=== PATIENT | male | born 1975 | race African-American/Black ===

== ENCOUNTER 2016-06-27 08:33 | Inpatient (IN) ==
[2016-06-27] MEDS ORDERED: PROMETHAZINE 25 MG TABLET PO PRN (10:40)
[2016-06-27] MEDS ORDERED: ONDANSETRON 4 MG/2 ML VIAL IV PRN (10:40)
[2016-06-27] MEDS ORDERED: hydrALAZINE 20 MG/1 ML VIAL IV PRN (10:40)
[2016-06-27] MEDS ORDERED: ALBUTEROL/IPRATROPIUM 3 ML NEB RESP TX PRN (10:40)
[2016-06-27] MEDS ORDERED: BISACODYL 5 MG TABLET PO PRN (10:40)
[2016-06-27] MEDS ORDERED: ALBUTEROL 2.5 MG/3 ML NEB RESP TX PRN (10:40)
[2016-06-27] MEDS ORDERED: ZALEPLON 5 MG CAPSULE PO PRN (10:40)
[2016-06-27] MEDS ORDERED: LABETALOL 20 MG/4 ML SYRINGE IV PRN (11:00)
[2016-06-27 11:10] LABS: Basophils # 0.1 10*3/uL (0.0-0.2); Basophils % 0.2 % (0.0-0.8); Hematocrit 48.5 VOL% (42.0-52.0); Hemoglobin 15.6 GM/DL (14.0-18.0); Immature Granulocytes % 0.5 %; Immature Granulocytes Absolute 0.14 #; Lymphocytes % 3.9 % (21.2-54.2); Mean Corpuscular HGB Conc 32.2 GM/DL (32-36); Mean Corpuscular Hemoglobin 28 PG (27-34); Mean Corpuscular Volume 85.7 FL (87-102); Mean Platelet Volume 11.8 FL (9.6-12.0); Monocytes # 1.8 10*3/uL (0.11-0.8); Monocytes % 6.8 % (1.7-12.7); Neutrophils # 23.2 10*3/uL (1.4-7.4); Neutrophils % 88.6 % (38.7-73.9); Platelet Count 122 10*3/uL (130-400); Red Blood Count 5.66 10*6/uL (3.8-5.5); Red Cell Distribution Width 15.4 % (9.3-17.3); White Blood Count 26.2 10*3/uL (4.5-13.71)
[2016-06-27 11:19] LABS: PT Patient Result 10.8 SECS
[2016-06-27 11:39] LABS: Magnesium 2.1 MG/DL (1.8-2.4)
[2016-06-27 11:46] LABS: Band Neutrophils 6 % (0-10); Lymphocytes 1 % (20-55); Metamyelocytes 1 %; Segmented Neutrophils 85 % (50-85); Total Cells Counted 100
[2016-06-27 11:47] LABS: Hypochromasia Slight; Microcytosis Slight; Platelet Estimate Adequate
[2016-06-27 11:48] LABS: Albumin 3.2 G/DL (3.4-5.0); Bilirubin,Total 0.7 MG/DL (0.2-1.0); Calcium 8.7 MG/DL (8.5-10.1); Osmolality,Calculated 276.5 MOS/KG (273-304); Total Protein 6.4 G/DL (6.4-8.3)
[2016-06-27 11:50] LABS: Troponin I Only 0.897 NG/ML (0.00-0.045)
--- NOTE | 2016-06-27 11:52 | Hospitalist History & Physical ---
Assessment and Plan - Time spent with patient Time spent with patient: Greater than 30 minutes (1) Leukocytosis Status: Acute Assessment and plan: start levaquin an flagyl. follow up blood cultures Current Visit: Yes Qualifiers: Leukocytosis type: unspecified Qualified Code(s): D72.829 - Elevated white blood cell count, unspecified (2) Abdominal pain Status: Acute Assessment and plan: Epigastric abdominal pain has improved. He now reports pain and tenderness in the lower part of the abdomen. No bowel movement since hospitalization. follow up KUB Current Visit: Yes (3) Pancreatitis Status: Acute Assessment and plan: improving lipase. This is his first episode of pancreatitis. He does not give a heavy alcohol history. His gallbladder appeared normal on CT. The etiology of this is unclear. Lipid panel has been ordered for tomorrow morning. Consider GI consult. Current Visit: Yes Qualifiers: Chronicity: acute Pancreatitis type: unspecified pancreatitis type (4) Uncontrolled hypertension Status: Acute Assessment and plan: Start Cardene drip. Add metoprolol. Add pain medications and anxiolytics. Current Visit: Yes (5) Cocaine use Status: Acute Current Visit: Yes (6) Acute kidney injury Status: Acute Assessment and plan: Creatinine 1.8. Avoid nephrotoxic medications. Follow-up repeat labs in a.m. Current Visit: Yes History of Present Illness Chief complaint: abdominal pain, uncontrolled HTN History of present illness: Mr. Munson is a 40 year old male with a hx of hypertension. He was admitted to the hospital on Tuesday at [facility] with abdominal pain nausea vomiting and a diagnosis of pancreatitis. I was called this morning by his physician in [place] due to markedly elevated blood pressure that was not responsive to IV or oral medications. The patient's abdominal pain and pancreatitis symptoms have improved. I have reviewed his records from [facility] including his labs, history and physical, CT scan of the brain as well as CT scan of the abdomen and pelvis. His gallbladder and pancreas were unremarkable on the scans. He was noted to have some bladder wall thickening. He remains hypertensive on arrival here. He is also hypokalemic. He reports being on lisinopril as an outpatient. He does have an elevated creatinine of 1.8. He has a marked leukocytosis with white blood cell count of 26,000. No fever. The patient is admitted to the intensive care unit for treatment of his uncontrolled hypertension as well as treatment for pancreatitis. His nausea and vomiting began on Tuesday afternoon. He reports eating some fish on Tuesday at lunch and then vomiting get up a few hours later. He denies any blood in his stool or vomit. He has had some blood in his urine. Home Medications Medication Instructions Recorded Confirmed Type Lisinopril/Hydrochlorothiazide 20 mg PO DAILY 06/27/16 06/27/16 History [Lisinopril-Hctz 20-25 mg Tab] Allergies Allergy/AdvReac Type Severity Reaction Status Date / Time No Known Drug Allergies AdvReac Verified 06/27/16 09:15 Medical,Surgical,& Family Hx - Medical History Cardio: History of: Hypertension Genitourinary: History of: Kidney Stones Reproductive: Reports: Sexually Transmitted Disease (Gonorrhea) - Family History Family History: Reports;: Family Cancer (Father(pancreas)), Family Hypertension (Father,), Additional Family History (Mom- Bleeding ulcers) - Social History Smoking Status: Current every day smoker Have you smoked in the last 12 months: Yes Time spent discussing smoking cessation with patient: more than 10 minutes Frequency of Alcohol Use: Frequently Type of Drug Use: Cocaine, Marijuana Marital Status: Lives With:: Spouse Functional capacity: independent ambulation 12 point system: reviewed and no additional remarkable complaints except as stated - Gastrointestinal Gastrointestinal: Present: as per HPI, abdominal pain, dyspepsia, nausea, vomiting - Genitourinary Genitourinary: Present: hematuria Exam - Constitutional General appearance: no acute distress - Head Head exam: Present: normal inspection, normocephalic, atraumatic - Eye Eye exam: Present: EOMI Pupils: Present: MONIE - ENT ENT exam: Present: normal exam, normal oropharynx - Neck Neck exam: Present: normal inspection. Absent: lymphadenopathy - Respiratory Respiratory exam: Present: clear to auscultation bilaterally - Cardiovascular Cardiovascular exam: Present: regular rate and rhythm - GI/Abdominal GI/Abdominal exam: Present: normal bowel sounds, soft. Absent: tenderness, rebound - Extremities Exam Extremities exam: Present: normal inspection, full ROM. Absent: calf tenderness , edema - Back Exam Back exam: Present: normal inspection - Neurological Exam Neurological exam: Present: alert, oriented X3 - Psychiatric Psychiatric exam: Present: normal affect, agitated, anxious - Skin Skin exam: Present: normal color, warm, dry Results - Labs CBC & BMP: 06/27/16 11:02 Lab Results: I have reviewed the past 24 hour labs
[2016-06-27] MEDS ORDERED: MAGNESIUM HYDROXIDE SUSP 30 ML UDCUP PO PRN (11:56)
[2016-06-27] MEDS ORDERED: MAGNESIUM HYDROXIDE SUSP 30 ML UDCUP PO ONE (11:56)
[2016-06-27] MEDS ORDERED: LACTULOSE 20 GM/30 ML UDCUP PO PRN (11:56)
[2016-06-27] MEDS ORDERED: METOPROLOL SUCCINATE XL 25 MG TABLET PO SCH (12:00)
[2016-06-27] MEDS: POTASSIUM CHLORIDE RIDER 10 MEQ in PREMIX 1 EACH IV PRN ×8 (12:01→23:52)
[2016-06-27] MEDS: SODIUM CHLORIDE 0.9% 1,000 ML IV SCH ×2 (12:02→19:58)
[2016-06-27] MEDS: niCARdipine INJ 25 MG in SODIUM CHLORIDE 0.9% 240 ML IV SCH ×2 (12:04→20:00)
[2016-06-27] MEDS ORDERED: METOCLOPRAMIDE 10 MG/2 ML VIAL IV PRN (12:04)
--- NOTE | 2016-06-27 12:06 | XRay Report ---
History is abdominal pain There are scattered throughout small and large bowel without disproportionate small bowel dilatation or organomegaly seen There are several up to 5 mm calcification overlying the right kidney. Left kidney is obscured by overlying bowel gas with questionable 2-3 mm calculi Several 2-3 mm nonspecific pelvic calcifications present. Faint density in the left abdomen felt to be bowel Impression: 1. Bilateral nephrolithiasis with nonspecific pelvic calcifications 2. Nonspecific bowel gas pattern PROCEDURE INTERPRETED AT [facility] DEPARTMENT OF RADIOLOGY Final Report Signed by: Dr. Ela Caldera
[2016-06-27] MEDS: ENOXAPARIN 40 MG/0.4 ML SYRINGE SUBCUT SCH (12:19)
[2016-06-27] MEDS: LORazepam 2 MG/1 ML VIAL IV PRN ×3 (12:22→21:07)
[2016-06-27] MEDS: HYDROmorphone 2 MG/1 ML VIAL IV PRN ×3 (12:24→21:07)
[2016-06-27] MEDS: PANTOPRAZOLE 40 MG VIAL IV SCH (12:28)
[2016-06-27] MEDS: metroNIDAZOLE INJ 500 MG in PREMIX 1 EACH IV SCH ×2 (12:43→19:58)
[2016-06-27] MEDS: LEVOFLOXACIN INJ 750 MG in PREMIX 1 EACH IV SCH (14:19)
[2016-06-27] MEDS: CLORAZEPATE 3.75 MG TABLET PO PRN (17:25)
[2016-06-28] MEDS: POTASSIUM CHLORIDE RIDER 10 MEQ in PREMIX 1 EACH IV PRN ×3 (00:48→06:15)
[2016-06-28] MEDS: HYDROmorphone 2 MG/1 ML VIAL IV PRN ×3 (01:35→08:52)
[2016-06-28] MEDS: CLORAZEPATE 3.75 MG TABLET PO PRN ×2 (01:36→08:51)
[2016-06-28] MEDS: LORazepam 2 MG/1 ML VIAL IV PRN ×2 (03:44→08:51)
[2016-06-28] MEDS: metroNIDAZOLE INJ 500 MG in PREMIX 1 EACH IV SCH ×2 (03:44→11:56)
[2016-06-28] MEDS: SODIUM CHLORIDE 0.9% 1,000 ML IV SCH (03:45)
[2016-06-28 04:59] LABS: Basophils % 0.2 % (0.0-0.8); Eosinophils # 0.1 10*3/uL (0.0-0.87); Eosinophils % 0.3 % (0.00-10.9); Hematocrit 41.2 VOL% (42.0-52.0); Hemoglobin 13.3 GM/DL (14.0-18.0); Immature Granulocytes % 0.5 %; Immature Granulocytes Absolute 0.08 #; Lymphocytes # 1.2 10*3/uL (1.4-4.0); Lymphocytes % 7.3 % (21.2-54.2); Mean Corpuscular HGB Conc 32.3 GM/DL (32-36); Mean Corpuscular Hemoglobin 28 PG (27-34); Mean Corpuscular Volume 86.2 FL (87-102); Mean Platelet Volume 11.4 FL (9.6-12.0); Monocytes # 1.4 10*3/uL (0.11-0.8); Monocytes % 8.5 % (1.7-12.7); Neutrophils # 13.8 10*3/uL (1.4-7.4); Neutrophils % 83.2 % (38.7-73.9); Platelet Count 83 10*3/uL (130-400); Red Blood Count 4.78 10*6/uL (3.8-5.5); Red Cell Distribution Width 15.5 % (9.3-17.3); White Blood Count 16.5 10*3/uL (4.5-13.71)
[2016-06-28 05:19] LABS: Hypochromasia Slight; Platelet Estimate Decreased
[2016-06-28 05:20] LABS: Microcytosis Slight
[2016-06-28 05:29] LABS: Albumin 2.3 G/DL (3.4-5.0); Bilirubin,Total 0.8 MG/DL (0.2-1.0); Calcium 7.6 MG/DL (8.5-10.1); Magnesium 2.1 MG/DL (1.8-2.4); Osmolality,Calculated 278.5 MOS/KG (273-304); Potassium 3.2 MMOL/L (3.5-5.1); Risk Ratio 5.94; Total Protein 4.9 G/DL (6.4-8.3); VLDL CHOLESTEROL 40.8 MG/DL
[2016-06-28] MEDS ORDERED: POTASSIUM CHLORIDE 20 MEQ TABLET PO ONE ×2 (06:04→08:30)
[2016-06-28] MEDS: niCARdipine INJ 25 MG in SODIUM CHLORIDE 0.9% 240 ML IV SCH ×2 (06:15→08:48)
[2016-06-28] MEDS ORDERED: SODIUM CHLOR 0.9% KCL 20 MEQ 20 MEQ/1,000 ML BAG IV SCH (06:30)
[2016-06-28] MEDS ORDERED: SODIUM PHOSPHATE ENEMA 133 ML BOTTLE RECTAL ONE (08:32)
--- NOTE | 2016-06-28 08:35 | Hospitalist Progress Note ---
Assessment and Plan (1) Leukocytosis Status: Acute Assessment and plan: On levaquin an flagyl. follow up blood cultures. No obvious source of infection. check UA. Current Visit: Yes Qualifiers: Leukocytosis type: unspecified Qualified Code(s): D72.829 - Elevated white blood cell count, unspecified (2) Abdominal pain Status: Acute Assessment and plan: He now reports pain and tenderness in the lower part of the abdomen. No bowel movement since hospitalization. KUB unremarkable. Current Visit: Yes (3) Pancreatitis Status: Acute Assessment and plan: improving lipase. This is his first episode of pancreatitis. He does not give a heavy alcohol history. His gallbladder appeared normal on CT. The etiology of this is unclear. Lipid panel shows elevated total cholesterol and Triglycerides- not that high though. Consider GI consult. Current Visit: Yes Qualifiers: Chronicity: acute Pancreatitis type: unspecified pancreatitis type (4) Uncontrolled hypertension Status: Acute Assessment and plan: wean Cardene drip. increase metoprolol. add PO hydralazine and norvasc. continue pain medications and anxiolytics. Current Visit: Yes (5) Cocaine use Status: Acute Current Visit: Yes (6) Acute kidney injury Status: Acute Assessment and plan: Creatinine 1.8. Avoid nephrotoxic medications. Follow-up repeat labs in a.m. this could also be CKD. unsure of baseline. Current Visit: Yes Hospitalist: Subjective Interval history: 40-year-old -Italian male [facility] with pancreatitis and uncontrolled hypertension. He has been receiving a Cardene drip which has been controlling his blood pressure. His abdominal pain is improved and his lipase continues to trend downward. His pain is not located in the lower part of the abdomen below the umbilicus surrounding the bladder. He reports no bowel movements in several days. KUB unremarkable. We'll start oral antihypertensives today including Norvasc hydralazine and increase dose of metoprolol. The patient was previously on Cipro but has an elevated creatinine of 1.8. He complains of being very hungry. Exam - Constitutional Vitals: Period Temp Pulse Resp BP Sys/Schrader Pulse Ox Last 24 Hr 97.2 F-98.3 F 90-122 12-22 100-235/71-171 93-100 General appearance: no acute distress - Head Head exam: Present: normal inspection, normocephalic, atraumatic - Eye Eye exam: Present: EOMI Pupils: Present: MONIE - ENT ENT exam: Present: normal exam, normal oropharynx - Respiratory Respiratory exam: Present: clear to auscultation bilaterally - Cardiovascular Cardiovascular exam: Present: regular rate and rhythm - GI/Abdominal GI/Abdominal exam: Present: normal bowel sounds, tenderness (suprapubic / lower abdomen), soft - Extremities Exam Extremities exam: Present: normal inspection, full ROM. Absent: calf tenderness , edema - Neurological Exam Neurological exam: Present: alert, oriented X3, CN II-XII intact - Psychiatric Psychiatric exam: Present: normal affect, normal mood, agitated - Skin Skin exam: Present: normal color, warm, dry Results - Labs CBC & BMP: 06/28/16 04:45 06/28/16 04:45 Lab Results: I have reviewed the past 24 hour labs
[2016-06-28] MEDS ORDERED: METOPROLOL SUCCINATE XL 50 MG TABLET PO SCH (09:00)
[2016-06-28] MEDS ORDERED: amLODIPine 10 MG TABLET PO SCH (09:00)
[2016-06-28] MEDS ORDERED: SPIRONOLACTONE 25 MG TABLET PO SCH (09:00)
[2016-06-28] MEDS ORDERED: INFLUENZA VIRUS VACCINE 0.5 ML SYRINGE IM ONE (09:00)
[2016-06-28] MEDS: PANTOPRAZOLE 40 MG VIAL IV SCH (11:56)
[2016-06-28] MEDS: ENOXAPARIN 40 MG/0.4 ML SYRINGE SUBCUT SCH (11:56)
[2016-06-28] MEDS: LEVOFLOXACIN INJ 750 MG in PREMIX 1 EACH IV SCH (12:04)
[2016-06-28 12:22] LABS: Apearance,Urine CLEAR (Clear); Bilirubin,Urine Negative (Negative); Blood, Urine Negative (Negative); Glucose,Urine (UA) Negative (Negative); Ketones,Urine Negative (Negative); Nitrite,Urine Negative (Negative); Protein,Urine 100 MG/DL; RBC,Urine <1 /HPF (0-4); Urine Color Yellow (Yellow); Urine Specific Gravity 1.006 (1.001-1.035); Urine Urobilinogen < 2.0 EU/DL (0.2-1.0); WBC,Urine 1 /HPF (0-6)
--- NOTE | 2016-06-28 14:42 | Event Note ---
I was notified by the nursing staff that the patient left AGAINST MEDICAL ADVICE. They report belligerent behavior. The patient unplugged himself from the monitor and the blood pressure cuff. That he was leaving and didn't care what anybody said. They explained to him that this was not a safe discharge as his blood pressure was still uncontrolled. He uses profanity and walked out of the ICU. He did sign out AMA paperwork prior to leaving the critical care unit. I was notified after he walked out.
[2016-06-28 15:31] VITALS: BP 149/107
[2016-06-28] MEDS ORDERED: PRAVASTATIN 40 MG TABLET PO SCH (21:00)
--- NOTE | 2016-06-29 11:07 | Physician Query Form ---
CLICK EDIT DOCUMENT TO SELECT QUERY ANSWER --> OK --> SIGN Tiffanie Cadet RN, CCDS Certified Clinical Fish Checker Director of Clinical Documentation W) [phone] (f) [phone] [email or web address] PROVIDERS: Make your selection(s) from the choices in EACH section by typing an "x" and enter comments in the comment section. Please use your independent medical judgment in providing your response. This request does not imply that any particular answer is desired or expected. CLINICAL INDICATORS: (Providers should not edit this section) Patient admitted with uncontrolled hypertension, initial BP 227/160, started on cardene infusion Uncontrolled hypertension codes to a stable, chronic condition without further clarification. Note: Hypertensive crises can present as hypertensive urgency or hypertensive emergency. Clarify which, if any of the following, is a more accurate diagnosis reflecting the type and acuity of the documented hypertension: TYPE: (x) Hypertensive Urgency ( ) Hypertensive Emergency ( ) Uncontrolled chronic hypertension at baseline ( ) Other, please specify: ( ) Clinically unable to determine Criteria Source - Up to Date (This topic last updated: Aug 13, 2015) HYPERTENSIVE URGENCY: Severe hypertension (usually a diastolic blood pressure above 120 mmHg) in asymptomatic patients is referred to as hypertensive urgency. There is no proven benefit from rapid reduction in blood pressure in asymptomatic patients who have no evidence of acute end-organ damage and are at little short-term risk. HYPERTENSIVE EMERGENCY: Severe hypertension (usually a diastolic blood pressure above 120 mmHg) with evidence of acute end-organ damage is defined as a hypertensive emergency. A hypertensive emergency can be life threatening and requires immediate treatment, usually with parenteral medications in a monitored setting. COMMENTS: Use of terms such as suspected, likely, or probable (associated with a specific diagnosis that is being evaluated, monitored, or treated as if it exists) are acceptable and can be restated in the discharge summary if not ruled out. MTDD
== END 2016-06-28 14:00 | disposition left against medical advice (07) | DRG 304 ==
LOC: N.CC 10:30
PROVIDERS: ADMIT Family Medicine; ATTEND Family Medicine

== ENCOUNTER 2016-07-01 12:00 | Inpatient (IN) ==
[2016-07-01] MEDS ORDERED: HYDROmorphone 2 MG/1 ML VIAL IV STA (12:59)
[2016-07-01] MEDS ORDERED: SODIUM CHLORIDE 0.9% 500 ML IV STA (12:59)
[2016-07-01] MEDS ORDERED: PANTOPRAZOLE 40 MG VIAL IV STA (12:59)
[2016-07-01] MEDS ORDERED: ALUM/MAG/SIMETH/LIDO VISC 1:1 30 ML BOTTLE PO STA (12:59)
[2016-07-01] MEDS ORDERED: ONDANSETRON 4 MG/2 ML VIAL IV STA (12:59)
[2016-07-01] MEDS ORDERED: hydrALAZINE 20 MG/1 ML VIAL IV STA (12:59)
--- NOTE | 2016-07-01 13:02 | Emergency Department Note ---
Daniel Diaz Meredith, am scribing for, and in the presence of, Camilo Jama MD 12:53. Evita Diaz Charles R, MD, personally performed the services described in this documentation, ascribed by Carine Sanchez in my presence, and it is both accurate and complete . Arrival - Arrival Chief Complaint: Abdominal / Flank Pain Stated Complaint: pain in lower abd/pancreatitis ED Nursing Triage Note: right abd pain. states that he was in hospital tuesday for pancreatitis but left AMA but states that he doesn't remember leaving AMA. hx: HTN Mode of Arrival: Ambulatory Limitations: No Limitations Source: Patient, Old Records Reviewed, RN Notes Reviewed Time Seen by Provider: 07/01/16 12:20 - History of Present Illness HPI Narrative: Pt is a 40 y/o black male reporting to the ED with c/o lower right quadrant abdominal pain and nausea. He was seen here in the ED 4 days ago and was diagnosed with pancreatitis but left AMA. Pt states he does not remember leaving AMA. His blood pressure at the time of triage was 242/166. He has a history of HTN and kidney stones. Pt admits to using tobacco, alcohol, and other drugs but states he has not used any of those things since he got sick. Onset (ago): day(s) Allergies/Adverse Reactions: Allergies Allergy/AdvReac Type Severity Reaction Status Date / Time No Known Drug Allergies AdvReac Verified 06/27/16 09:15 Home Medications: Home Medications Medication Instructions Recorded Confirmed Type Lisinopril/Hydrochlorothiazide 20 mg PO DAILY 06/27/16 06/27/16 History [Lisinopril-Hctz 20-25 mg Tab] Review of System - Review of System 12 point system: reviewed and no additional remarkable complaints except as stated - Review of System Cardiovascular: Present: as per HPI, other (hypertension) Gastrointestinal: Present: as per HPI, abdominal pain, nausea Medical,Surgical,& Family Hx - Medical History Cardio: History of: Hypertension Genitourinary: History of: Kidney Stones Gastrointestinal: History of: Pancreatitis Reproductive: Reports: Sexually Transmitted Disease (Gonorrhea) - Family History Family History: Reports;: Family Cancer (Father(pancreas)), Family Hypertension (Father,) - Social History Smoking Status: Current every day smoker Frequency of Alcohol Use: Occasionally Type of Drug Use: Marijuana Exam Vital Signs: Vital Signs Temperature 98.9 F 07/01/16 12:03 Pulse Rate 113 H 07/01/16 12:03 Respiratory Rate 20 07/01/16 12:03 Blood Pressure 242/166 07/01/16 12:03 O2 Sat by Pulse Oximetry 97 07/01/16 12:03 - General General appearance: alert, in no apparent distress - Head Head exam: Present: atraumatic, normocephalic - Eye Eye exam: Present: normal appearance, PERRL, EOMI - ENT ENT exam: Present: mucous membranes moist, normal external ear exam - Neck Neck exam: Present: full ROM, trachea midline. Absent: tenderness, meningismus , lymphadenopathy, thyromegaly - Chest Chest inspection: Present: symmetric chest wall rise. Absent: tenderness, rash - Respiratory Respiratory exam: Present: normal lung sounds bilaterally. Absent: respiratory distress - Cardiovascular Cardiovascular exam: Present: normal rhythm, tachycardia. Absent: murmur, rubs , gallop - Abdominal Exam Abdominal exam: Present: soft, tenderness (mildy tender in the lower abdomen ), diminished bowel sounds. Absent: distention - Extremities Exam Extremities exam: Present: full ROM, normal capillary refill. Absent: tenderness, pedal edema, calf tenderness - Back Exam Back exam: Present: full ROM. Absent: tenderness - Neurological Exam Neurological exam: Present: alert, oriented X3, CN II-XII intact. Absent: motor sensory deficit - Psychiatric Psychiatric exam: Present: normal affect, normal mood - Skin Skin exam: Present: warm, dry, intact, normal color Course - Consultations Consultation #1: Hospitalist will admit patient Time: 14:30 Results - Labs CBC & BMP: 07/01/16 12:24 07/01/16 12:24 Lab Results: I have reviewed the patients labs Labs: Laboratory Tests 07/01/16 07/01/16 12:24 12:24 WBC 14.1 H RBC 5.01 Hgb 13.8 L Hct 42.6 MCV 85.0 L Plt Count 139 D Neut % (Auto) 75.2 H Lymph % (Auto) 11.9 L Neut # (Auto) 10.6 H [place] # (Auto) 1.5 H Serum Alcohol < 15 L Laboratory Tests 07/01/16 12:24 Sodium 139 Potassium 3.1 L Chloride 100 Carbon Dioxide 27 Anion Gap 15.1 H BUN 14 Creatinine 1.80 H Glucose 110 H Magnesium 2.7 H AST 41 H Alkaline Phosphatase 169 H Troponin I 0.262 H Albumin 2.9 L Globulin 3.6 H Albumin/Globulin Ratio 0.8 L Amylase 162 H Laboratory Tests 07/01/16 07/01/16 13:55 13:55 Urine pH 7.0 Ur Specific [place] 1.010 Urine Protein >=500 Urine Urobilinogen < 2.0 H Urine RBC 7 Urine WBC 1 Ur Squamous Epith Cells Occasional Urine Mucus Occasional Urine Opiates Screen Positive H Ur Barbiturates Screen Negative Ur Phencyclidine Scrn Negative U Amphetamine/Methamph Negative U Benzodiazepines Scrn Negative U Cocaine Metab Screen Positive H U Cannabinoids Screen Positive H - Diagnostic Findings Procedure: Abdominal x-ray: report reviewed by me (Unremarkable bowel gas pattern. Stable appearing right nephrolithiasis when compared to 06/27/16. Unable to identify the previously identifed nephrolithiasis. ), Chest x-ray: report reviewed by me (Negative chest. ) Critical Care Time Critical Care Time: Yes Total Critical Care Time: 60 Disposition Clinical Impression: Abdominal pain, Cocaine use, Uncontrolled hypertension, Malignant hypertension , Renal insufficiency, Elevated troponin, Polysubstance abuse Case discussed with: patient, patient's family Disposition: Still a Patient Condition: Guarded Time of Disposition: 14:31
[2016-07-01] MEDS ORDERED: hydrALAZINE 20 MG/1 ML VIAL ONE (13:21)
[2016-07-01] MEDS ORDERED: PANTOPRAZOLE 40 MG VIAL IV ONE (13:21)
[2016-07-01] MEDS ORDERED: ONDANSETRON 4 MG/2 ML VIAL ONE (13:21)
[2016-07-01] MEDS ORDERED: ALUM/MAG/SIMETH/LIDO VISC 1:1 30 ML BOTTLE PO ONE (13:22)
[2016-07-01] MEDS ORDERED: HYDROmorphone 2 MG/1 ML VIAL ONE (13:22)
--- NOTE | 2016-07-01 13:25 | EKG Report ---
Stationary ECG Study [facility] ER Test Date: 07/01/2016 1:23:17 PM Pat Name: LOIS MEDINA Department: Room: 126 Gender: M Commercial Underwriter: MIRZA : 1975 Requested by: Camilo Arias Order Number: [id number] Reading MD: AMANDEEP THOMSON Intervals [place] Rate: 103 P: 71 MA: 99 QRS: 65 QRSD: 79 T: -90 QT: 352 QTc: 411 Interpretive Statements SINUS TACHYCARDIA WITH SHORT MA INTERVAL POSSIBLE LEFT ATRIAL ENLARGEMENT LEFT VENTRICULAR HYPERTROPHY AND ST-T CHANGE Electronically Signed On 07-02-16 13:37:18 HOUSE PRINCIPAL by AMANDEEP THOMSON [email or web address]
--- NOTE | 2016-07-01 13:26 | XRay Report ---
XR chest 1V portable Indication: Abdominal pain. Chest one view: No comparison. The heart size and mediastinal contour are normal. The lungs and pleural spaces are clear. Bones are unremarkable. Impression: Negative chest. PROCEDURE INTERPRETED AT [facility] DEPARTMENT OF RADIOLOGY Final Report Signed by: Peterson Yañez M.D.
--- NOTE | 2016-07-01 13:28 | XRay Report ---
XR abdomen 2V Indication: Abdominal pain. Abdomen 4 views: 2 calcifications project of the lower pole the right kidney. Previous identify stones over left renal shadow are probably obscured by bowel gas on today's study. No small bowel dilatation seen. Normal amount of stool and gas is shown the colon. Impression: Unremarkable bowel gas pattern. Stable appearing right nephrolithiasis when compared to 06/27/16. Unable to identify the previously identified left nephrolithiasis. PROCEDURE INTERPRETED AT [facility] DEPARTMENT OF RADIOLOGY Final Report Signed by: Peterson Yañez M.D.
[2016-07-01 13:49] LABS: Basophils # 0.1 10*3/uL (0.0-0.2); Basophils % 0.4 % (0.0-0.8); Eosinophils # 0.1 10*3/uL (0.0-0.87); Eosinophils % 0.8 % (0.00-10.9); Hematocrit 42.6 VOL% (42.0-52.0); Hemoglobin 13.8 GM/DL (14.0-18.0); Immature Granulocytes % 1.2 %; Immature Granulocytes Absolute 0.17 #; Lymphocytes # 1.7 10*3/uL (1.4-4.0); Lymphocytes % 11.9 % (21.2-54.2); Mean Corpuscular HGB Conc 32.4 GM/DL (32-36); Mean Corpuscular Hemoglobin 28 PG (27-34); Mean Platelet Volume 11.4 FL (9.6-12.0); Monocytes # 1.5 10*3/uL (0.11-0.8); Monocytes % 10.5 % (1.7-12.7); Neutrophils # 10.6 10*3/uL (1.4-7.4); Neutrophils % 75.2 % (38.7-73.9); Platelet Count 139 10*3/uL (130-400); Red Blood Count 5.01 10*6/uL (3.8-5.5); Red Cell Distribution Width 14.7 % (9.3-17.3); White Blood Count 14.1 10*3/uL (4.5-13.71)
[2016-07-01 14:03] LABS: Alanine Aminotransferase 60 U/L (16-61); Albumin 2.9 G/DL (3.4-5.0); Alkaline Phosphatase 169 U/L (45-117); Amylase 162 U/L (25-115); Aspartate Amino Transferase 41 U/L (0-37); Bilirubin,Total < 0.39 MG/DL (0.2-1.0); Blood Urea Nitrogen 14 MG/DL (7-18); Calcium 8.6 MG/DL (8.5-10.1); Glucose 110 MG/DL (74-106); Magnesium 2.7 MG/DL (1.8-2.4); Osmolality,Calculated 278.5 MOS/KG (273-304); Potassium 3.1 MMOL/L (3.5-5.1); Sodium 139 MMOL/L (136-145); Total Protein 6.5 G/DL (6.4-8.3)
[2016-07-01 14:11] LABS: Barbiturates Screen,Urine Negative (Negative); Benzodiazepines Screen,Urine Negative (Negative); Cannabinoid Screen,Urine Positive (Negative); Opiate Screen,Urine Positive (Negative); Phencyclidine Screen,Urine Negative (Negative)
[2016-07-01 14:11] LABS: Troponin I Only 0.262 NG/ML (0.00-0.045)
[2016-07-01 14:23] LABS: Apearance,Urine CLEAR (Clear); Bilirubin,Urine Negative (Negative); Blood, Urine Negative (Negative); Glucose,Urine (UA) Negative (Negative); Ketones,Urine Negative (Negative); Mucus,Urine Occasional /LPF (Occasional); Nitrite,Urine Negative (Negative); Protein,Urine >=500 MG/DL; RBC,Urine 7 /HPF (0-4); Squamous Epithelial Cell,Urine Occasional /HPF (0-10); Urine Color Yellow (Yellow); Urine Urobilinogen < 2.0 EU/DL (0.2-1.0); WBC,Urine 1 /HPF (0-6)
[2016-07-01] MEDS ORDERED: niCARdipine 25 MG/10 ML VIAL IV ONE (14:29)
[2016-07-01] MEDS ORDERED: POTASSIUM CHLORIDE 20 MEQ TABLET PO STA (14:30)
[2016-07-01] MEDS ORDERED: ACETAMINOPHEN 325 MG TABLET PO PRN (14:39)
[2016-07-01] MEDS ORDERED: DOCUSATE SODIUM 100 MG CAPSULE PO PRN (14:39)
[2016-07-01] MEDS ORDERED: ONDANSETRON 4 MG/2 ML VIAL IV PRN (14:39)
--- NOTE | 2016-07-01 15:21 | Hospitalist History & Physical ---
Assessment and Plan - Time spent with patient Time spent with patient: Greater than 30 minutes (due to assessment, plan and documentation.) (1) Hypertensive urgency Status: Acute Current Visit: Yes (2) Abdominal pain Status: Acute Current Visit: Yes (3) Cocaine use Status: Acute Current Visit: Yes (4) Elevated troponin Status: Acute Current Visit: Yes History of Present Illness Chief complaint: headache, chest discomfort. History of present illness: Mr. Munson is a 40 year old male who has recently been discharged from our facility on Tuesday for a bout of acute pancreatitis. He presents today with headache, and some chest discomfort per his report. His BP on arrival was 242/ 166. He has been started on a Cardene infusion at 2.5 mg/hr. He is very anxious and tearful during my interview. He states that he has a hx of HTN and that his lisinopril was recently increased to 20 mg/ [address] Ames. He states that he has been out of his medications for 2 weeks and has not been able to get an appointment for a refill. He is still sore from his pancreatitis, Amylase 162, lipase 377. His UDS was positive for cocaine and marijuana. He states that he has not done any drugs in about a week. He states that he is going to stop smoking now, and that he only occasionally drinks a couple of beers. He does have an extensive family history of HTN. He is not diabetic. His troponin was elevated at 0.262. We will get serial troponins, EKG's, and Cardiology consultation. He denies any problems voiding or having a BM, denies any dysuria or hematuria. However, he does mention that he has had an episode of bleeding when he ejaculated. He states that he was told that it could have been due to his kidneys. Creatinine is 1.8 with GFR 63 today. BUN 14. He states that he can't get an erection now, and that he has no sex drive. Informed that sometimes this is a side effect from BP medication but that he really needed to be compliant and that there are other medications that may not cause as much of problem. His is at bedside. They are both okay with our plan of care. He lives at home and typically functions independently. \ Further plan and addendum to follow by Dr. Annabel Parada. Home Medications Medication Instructions Recorded Confirmed Type Lisinopril/Hydrochlorothiazide 20 mg PO DAILY 06/27/16 06/27/16 History [Lisinopril-Hctz 20-25 mg Tab] Allergies Allergy/AdvReac Type Severity Reaction Status Date / Time No Known Drug Allergies AdvReac Verified 06/27/16 09:15 Medical,Surgical,& Family Hx - Medical History Cardio: History of: Hypertension Genitourinary: History of: Kidney Stones Gastrointestinal: History of: Pancreatitis Reproductive: Reports: Sexually Transmitted Disease (Gonorrhea) - Family History Family History: Reports;: Family Cancer (Father(pancreas)), Family Hypertension (Father,) - Social History Smoking Status: Current every day smoker Frequency of Alcohol Use: Occasionally Type of Drug Use: Cocaine, Marijuana Marital Status: Lives With:: Spouse Functional capacity: independent ambulation - Constitutional Constitutional: Absent: chills, fatigue, fever(s) - EENT Eyes: Absent: blurry vision, diplopia Ears: Absent: decreased hearing, tinnitus Nose, mouth and throat: Absent: dysphagia - Cardiovascular Cardiovascular: Present: chest pain at rest (resolved). Absent: dyspnea on exertion, palpitations - Respiratory Respiratory: Absent: cough, dyspnea, hemoptysis - Gastrointestinal Gastrointestinal: Absent: abdominal pain, melena, nausea, vomiting - Genitourinary Genitourinary: Present: other (erectile dysfunction; bloody ejaculation x 1 several weeks ago. ). Absent: dysuria, hematuria - Musculoskeletal Musculoskeletal: Absent: back pain, joint swelling - Neurological Neurological: Absent: confusion, dizziness - Psychiatric Psychiatric: Present: anxiety. Absent: confusion, depression - Endocrine Endocrine: Absent: cold intolerance, heat intolerance - Hematologic/Lymphatic Hematologic/Lymphatic: Absent: easy bleeding, easy bruising Exam - Constitutional Vitals: Period Temp Pulse Resp BP Sys/Schrader Pulse Ox Last 24 Hr 98.9 F 113 20 242/166 97 General appearance: normal weight, no acute distress - Head Head exam: Present: normal inspection, normocephalic - Eye Eye exam: Present: EOMI. Absent: scleral icterus Pupils: Present: MONIE, normal accommodation - ENT ENT exam: Present: normal exam, normal oropharynx - Neck Neck exam: Present: normal inspection. Absent: lymphadenopathy - Respiratory Respiratory exam: Present: clear to auscultation bilaterally. Absent: accessory muscle use - Cardiovascular Cardiovascular exam: Present: tachycardia. Absent: carotid bruit - GI/Abdominal GI/Abdominal exam: Present: normal bowel sounds, soft. Absent: tenderness - Extremities Exam Extremities exam: Present: normal inspection. Absent: edema - Back Exam Back exam: Present: normal inspection. Absent: muscle spasm - Neurological Exam Neurological exam: Present: alert, oriented X3 - Psychiatric Psychiatric exam: Present: anxious - Skin Skin exam: Present: normal color, warm, dry, intact Results - Labs CBC & BMP: 07/01/16 12:24 07/01/16 12:24 Lab Results: I have reviewed the past 24 hour labs - Diagnostic Findings Procedure: Chest x-ray: report reviewed by me (negative. ), X-ray: report reviewed by me (abd: stable appearing nephrolithiasis. )
[2016-07-01] MEDS: niCARdipine INJ 25 MG in SODIUM CHLORIDE 0.9% 240 ML IV SCH ×2 (15:50→18:25)
--- NOTE | 2016-07-01 16:51 | Cardiology Consult Note ---
<Estefanía Torres E - Last Filed: 07/01/16 16:41> Assessment and Plan - Time spent with patient Time spent with patient: Greater than 30 minutes (1) Abdominal pain Status: Acute Assessment and plan: Defer further workup to attending. Current Visit: Yes (2) Cocaine use Status: Chronic Assessment and plan: Greater than 20 minutes was spent today discussing the merits of cocaine cessation. We'll avoid use of beta blockers while cocaine positive Current Visit: Yes (3) Renal insufficiency Status: Acute Assessment and plan: Continue to monitor closely. Current Visit: Yes (4) Elevated troponin Status: Acute Assessment and plan: We will cycle every 8 hours. EKG in the morning. Short of patient having [facility], medical management will ensue. I suspect that his troponin is related to his uncontrolled hypertension as he normally does not have chest pain, heaviness , tightness or shortness of breath with exertion. See HPI for additional information Current Visit: Yes (5) Polysubstance abuse Status: Acute Assessment and plan: Greater than 20 minutes was spent today discussing the merits of cessation of illicit drugs. Current Visit: Yes (6) Hypertensive urgency Status: Acute Assessment and plan: Currently using Cardene for hypertensive urgency. Will trend down slowly. We will avoid beta blockers. I suspect patient may require 3 or more antihypertensives to control his blood pressure. Current Visit: Yes (7) LVH (left ventricular hypertrophy) Status: Acute Assessment and plan: LVH pattern per EKG. Echocardiogram has been ordered. Current Visit: Yes History of Present Illness - Data of Consult Patient: new to practice Consult date: 07/01/16 Requesting Physician: Annabel Parada - Consult Narrative Reason for consult: hypertensive urgency, elevated troponin History of present illness: Mr. Munson is a 40 year old male who is never been seen by cardiology. Risk factors include: Hypertension untreated, cocaine use, marijuana use, tobaccoism and noncompliance. Mr. Munson was hospitalized to [facility] 06/27/2016 for acute pancreatitis. He left AGAINST MEDICAL ADVICE the following day. He returned to the emergency department today with complaints of headache and chest discomfort. Blood pressure on arrival to the emergency department was 242/166. He was started on IV Cardene at 2.5 mg/h and his blood pressure is currently 170/110. Cardiac biomarkers reveal troponin of 0.2. EKG reveals LV strain and ST changes. He is currently chest pain-free. Chest pain started last evening and is located in his middle to left chest area. He describes this as a stinging sensation. He feels as if lifting his left shoulder above his head may improve the discomfort. It is not associated with shortness of breath, heart racing or palpitations. He is normally very active. 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 His primary complaint is of lower lateral abdominal discomfort for the past several days. He tells me he feels as if he's been running a fever at home. He denies cough or chills. He denies vomiting of blood or passing blood in his stool. He is somewhat tender to touch in the mid and lower abdominal areas. States he had a bowel movement yesterday which she considered to be of normal consistency. He has difficulty getting an erection but recently, when he did ejaculate he had blood in his ejaculate. He is concerned about this. He is with 3 children. Set of twin boys, age 17 and an 11-year-old girl. Patient does not take his antihypertensives appropriately. We had a greater than 20 minute conversation today regarding the importance of taking his medications as prescribed. Also informed patient that I suspect he would be a patient he may require up to 3 or more medications to control his blood pressure. He verbalizes understanding. I did discuss that we could most likely manage his blood pressure medications with antihypertensives on the $4 [employer]. He tells me he's interested in stopping the use of all illicit drugs, tobacco and alcohol. This point, we will continue to cycle his cardiac biomarkers. An echocardiogram will be ordered. I suspect his troponin elevation may be related to his hypertensive urgency as he is normally very active without having chest pain, heaviness tightness or shortness of breath. Can consider further invasive workup should the patient demonstrate medication compliance. Short of the patient having a STEMI, we will treat him medically. Should he have symptoms of angina when his blood pressure is controlled and he is off illegal drugs, we can consider further workup as needed. I discussed this with the patient he verbalizes understanding of this information. CC: Annabel Parada MD - Home Medications and Allergies Home Medications: Home Medications Medication Instructions Recorded Confirmed Type Lisinopril/Hydrochlorothiazide 20 mg PO DAILY 06/27/16 07/01/16 History [Lisinopril-Hctz 20-25 mg Tab] Allergies/Adverse Reactions: Allergies Allergy/AdvReac Type Severity Reaction Status Date / Time No Known Drug Allergies AdvReac Verified 06/27/16 09:15 Review of systems: REVIEW OF SYSTEMS: See HPI - Constitutional Constitutional: Present: Fatigue. Absent: syncope, anorexia, night sweats - EENT Eyes: Absent: blurry vision, loss of vision, diplopia Ears: Absent: decreased hearing, ear pain, ear discharge - Cardiovascular Cardiovascular: Denies chest pain with exertion, dyspnea on exertion, edema, palpitations. Absent: chest pain with deep breath, claudication. - Respiratory Respiratory: Denies FUENTES, cough. Absent: wheezing, hemoptysis, change in phlegm color - Gastrointestinal Gastrointestinal: Present: abdominal pain. Denies hematemesis, hematochezia, melena, change in bowel habits, nausea - Genitourinary Genitourinary: Absent: difficulty urinating, dysuria, urinary hesitancy, flank pain. Impotence. When he does have sexual relations he has been having bloody ejaculate - Musculoskeletal Musculoskeletal: Denies joint swelling, muscle cramps, muscle weakness - Neurological Neurological: Present: normal gait without frequent falls. Absent: dizziness, hemiparesis - Psychiatric Psychiatric: Absent: anxiety, depression, difficulty concentrating - Endocrine Endocrine: Present: fatigue. Absent: cold intolerance, heat intolerance, polyuria, polyphagia, polydipsia - Hematologic/Lymphatic Hematologic/Lymphatic: Present: easy bruising. Absent: easy bleeding -Integumentary Integumentary: Absent: lesions, rashes, skin breakdown Medical,Surgical,& Family Hx - Medical History Cardio: History of: Hypertension No history of: CAD, [place] Genitourinary: History of: Kidney Stones Gastrointestinal: History of: Pancreatitis Reproductive: Reports: Sexually Transmitted Disease (Gonorrhea) - Family History Family History: Reports;: Family Cancer (Father(pancreas)), Family Hypertension (Father,) - Social History Smoking Status: Current every day smoker Have you smoked in the last 12 months: Yes Time spent discussing smoking cessation with patient: 3 to 10 minutes Frequency of Alcohol Use: Occasionally Type of Drug Use: Cocaine, Marijuana Marital Status: Lives With:: Spouse Functional capacity: independent ambulation Physical Examination Vital Signs Temp Pulse Resp BP Pulse Ox 98.9 F 113 H 20 242/166 97 07/01/16 12:03 07/01/16 12:03 07/01/16 12:03 07/01/16 12:03 07/01/16 12:03 General: Appears well with no apparent distress. Pleasant and cooperative. Appears comfortable. HEENT: PERRL, normocephalic, atraumatic. Mucous membranes moist. No jaundice noted. Conjunctiva moist and clear, sclerae anicteric Neck: No JVD/HJR, no thyromegaly or lymphadenopathy noted. No carotid bruit appreciated Cardiac: Regular rate and rhythm. No murmur rub or gallop. Lungs: Clear to auscultation without accessory muscle use to assist the respiratory pattern. Not requiring oxygen Abdomen: Soft, bowel sounds normoactive. Touch mid and lower abdominal areas. No abdominal bruit or thrill noted. No masses noted. Musculoskeletal: No fluid collection. Decreased range of motion is noted. Extremities: No clubbing, cyanosis noted. No edema noted. Upper extremity pulses 2+. Lower extremity pulses 2+. Capillary refill less than 3 seconds. Skin: No unusual lesions or rashes. No skin breakdown appreciated. Neuro: Awake, alert and oriented 3. Moves all extremities well without hemiparesis or paralysis. No essential tremor is appreciated. Result/EKG - Labs CBC & BMP: 07/01/16 12:24 07/01/16 12:24 Lab Results: I have reviewed the past 24 hour labs - Diagnostic Findings Procedure: Chest x-ray: report reviewed by ma - EKG EKG results: interpreted by ma EKG shows: tachycardia <Brenden Cabrera - Last Filed: 07/02/16 08:32> History of Present Illness - Consult Narrative History of present illness: Mr. Munson is a 40 year old male CC: Annabel Parada MD Physical Examination Vital Signs Temp Pulse Resp BP Pulse Ox 98.9 F 113 H 20 242/166 97 07/01/16 12:03 07/01/16 12:03 07/01/16 12:03 07/01/16 12:03 07/01/16 12:03 Result/EKG - Labs CBC & BMP: 07/02/16 00:54 07/02/16 00:54 Labs: Laboratory Results - last 24 hr 07/01/16 07/02/16 07/02/16 17:37 00:54 00:54 WBC 13.8 H RBC 4.82 Hgb 13.2 L Hct 40.8 L MCV 84.6 L MCH 27 MCHC 32.4 RDW 14.4 Plt Count 143 MPV 11.3 Neut % (Auto) 77.3 H Lymph % (Auto) 11.4 L [place] % (Auto) 8.8 Eos % (Auto) 0.6 Baso % (Auto) 0.4 Neut # (Auto) 10.7 H Lymph # (Auto) 1.6 [place] # (Auto) 1.2 H Eos # (Auto) 0.1 Baso # (Auto) 0.1 Immature Gran % 1.5 Nucleated RBC % 0.0 Immature Gran # 0.21 Nucleated RBCs # 0.00 Sodium Potassium Chloride Carbon Dioxide Anion Gap BUN Creatinine GFR Calculation BUN/Creatinine Ratio Glucose Calculated Osmolality Calcium Magnesium Total Bilirubin AST ALT Alkaline Phosphatase Troponin I 0.222 H 0.214 H B-Natriuretic Peptide Total Protein Albumin Globulin Albumin/Globulin Ratio Triglycerides Cholesterol LDL Cholesterol VLDL Cholesterol HDL Cholesterol Heart Disease Risk Ratio Free T4 TSH 3rd Generation 07/02/16 07/02/16 07/02/16 00:54 00:54 00:54 WBC RBC Hgb Hct MCV MCH MCHC RDW Plt Count MPV Neut % (Auto) Lymph % (Auto) [place] % (Auto) Eos % (Auto) Baso % (Auto) Neut # (Auto) Lymph # (Auto) [place] # (Auto) Eos # (Auto) Baso # (Auto) Immature Gran % Nucleated RBC % Immature Gran # Nucleated RBCs # Sodium 139 Potassium 3.2 L Chloride 103 Carbon Dioxide 23 Anion Gap 16.2 H BUN 14 Creatinine 1.60 H GFR Calculation 73 BUN/Creatinine Ratio 8.00 Glucose 128 H Calculated Osmolality 279.5 Calcium 7.3 L Magnesium 2.1 Total Bilirubin 0.40 AST 60 H ALT 102 H Alkaline Phosphatase 178 H Troponin I B-Natriuretic Peptide 107 H Total Protein 5.8 L Albumin 2.5 L Globulin 3.3 Albumin/Globulin Ratio 0.7 L Triglycerides 207 H Cholesterol 280 H LDL Cholesterol 198.0 VLDL Cholesterol 41.4 HDL Cholesterol 45 Heart Disease Risk Ratio 6.22 Free T4 1.19 TSH 3rd Generation 0.940
--- NOTE | 2016-07-01 17:03 | CT Report ---
History is flank pain abdominal pain There are several up to 5 mm right renal calculi and tiny 1 mm left renal calculi No secondary signs of acute ureteral obstruction seen. Tiny calcifications adjacent to the right ureter felt be phlebolith. No enlarged retroperitoneal nodes seen There is thickening fluid and stranding in the fat surrounding the tail of the pancreas without a discrete loculated pseudocyst. Pelvis: Appendix is normal in size. No free fluid or focal inflammatory changes seen in the pelvis. Multiple pelvic phleboliths present. Impression: 1. Inflammatory changes and phlegmon in the left upper abdomen most likely related to pancreatitis involving the tail of the pancreas. Clinical correlation and followup suggested 2. Bilateral nephrolithiasis PROCEDURE INTERPRETED AT [facility] DEPARTMENT OF RADIOLOGY Final Report Signed by: Dr. Ela Caldera
[2016-07-01] MEDS: ENOXAPARIN 40 MG/0.4 ML SYRINGE SUBCUT SCH (18:17)
[2016-07-01] MEDS: SODIUM CHLORIDE 0.9% 1,000 ML IV SCH ×2 (18:17→22:12)
[2016-07-01 18:18] LABS: Lactic Acid 0.8 MMOL/L (0.4-2.0)
[2016-07-01] MEDS: ZALEPLON 5 MG CAPSULE PO PRN ×2 (20:26→22:04)
[2016-07-01] MEDS: niCARdipine INJ 50 MG in SODIUM CHLORIDE 0.9% 230 ML IV SCH ×2 (20:27→23:39)
--- NOTE | 2016-07-01 23:14 | EKG Report ---
Stationary ECG Study [facility] Test Date: 07/01/2016 11:13:38 PM Pat Name: LOIS MEDINA Department: Room: 126 Gender: M Cyber Threat Analyst: NAVIN : 1975 Requested by: Toma Hammonds Order Number: [id number] Reading MD: AMANDEEP THOMSON Intervals [place] Rate: 113 P: 76 VT: 133 QRS: 80 QRSD: 82 T: -68 QT: 339 QTc: 406 Interpretive Statements SINUS TACHYCARDIA RIGHT ATRIAL ENLARGEMENT POSSIBLE LEFT ATRIAL ENLARGEMENT LEFT VENTRICULAR HYPERTROPHY AND ST-T CHANGE Electronically Signed On 07-02-16 13:58:05 AUTOMOBILE MECHANIC APPRENTICE by AMANDEEP THOMSON [email or web address]
[2016-07-02 01:20] LABS: Basophils # 0.1 10*3/uL (0.0-0.2); Basophils % 0.4 % (0.0-0.8); Eosinophils # 0.1 10*3/uL (0.0-0.87); Eosinophils % 0.6 % (0.00-10.9); Hematocrit 40.8 VOL% (42.0-52.0); Hemoglobin 13.2 GM/DL (14.0-18.0); Immature Granulocytes % 1.5 %; Immature Granulocytes Absolute 0.21 #; Lymphocytes # 1.6 10*3/uL (1.4-4.0); Lymphocytes % 11.4 % (21.2-54.2); Mean Corpuscular HGB Conc 32.4 GM/DL (32-36); Mean Corpuscular Hemoglobin 27 PG (27-34); Mean Corpuscular Volume 84.6 FL (87-102); Mean Platelet Volume 11.3 FL (9.6-12.0); Monocytes # 1.2 10*3/uL (0.11-0.8); Monocytes % 8.8 % (1.7-12.7); Neutrophils # 10.7 10*3/uL (1.4-7.4); Neutrophils % 77.3 % (38.7-73.9); Platelet Count 143 10*3/uL (130-400); Red Blood Count 4.82 10*6/uL (3.8-5.5); Red Cell Distribution Width 14.4 % (9.3-17.3); White Blood Count 13.8 10*3/uL (4.5-13.71)
[2016-07-02 01:42] LABS: Albumin 2.5 G/DL (3.4-5.0); Bilirubin,Total 0.4 MG/DL (0.2-1.0); Calcium 7.3 MG/DL (8.5-10.1); Magnesium 2.1 MG/DL (1.8-2.4); Osmolality,Calculated 279.5 MOS/KG (273-304); Potassium 3.2 MMOL/L (3.5-5.1); Risk Ratio 6.22; Thyroid Stimulating Hormone 0.94 uIU/ml (0.358-3.74); Total Protein 5.8 G/DL (6.4-8.3); VLDL CHOLESTEROL 41.4 MG/DL
[2016-07-02] MEDS: SODIUM CHLORIDE 0.9% 1,000 ML IV SCH ×2 (02:36→06:16)
[2016-07-02] MEDS: niCARdipine INJ 50 MG in SODIUM CHLORIDE 0.9% 230 ML IV SCH ×5 (03:53→21:40)
--- NOTE | 2016-07-02 07:44 | EKG Report ---
Stationary ECG Study [facility] Test Date: 07/02/2016 7:43:38 AM Pat Name: LOIS MEDINA Department: Room: 126 Gender: M Private Equity Associate: SHANNON : 1975 Requested by: Toma Hammonds Order Number: [id number] Reading MD: AMANDEEP THOMSON Intervals [place] Rate: 116 P: 75 UT: 129 QRS: 78 QRSD: 88 T: -68 QT: 347 QTc: 416 Interpretive Statements SINUS TACHYCARDIA POSSIBLE RIGHT ATRIAL ENLARGEMENT LEFT VENTRICULAR HYPERTROPHY AND ST-T CHANGE Electronically Signed On 07-02-16 14:10:53 HAND MOUNTER by AMANDEEP THOMSON [email or web address]
[2016-07-02] MEDS ORDERED: ASPIRIN 325 MG TABLET PO ONE (08:27)
[2016-07-02] MEDS: PANTOPRAZOLE 40 MG TABLET PO SCH (08:30)
--- NOTE | 2016-07-02 08:35 | Cardiology Progress Note ---
Assessment and Plan (1) Hyperglycemia Status: Acute Assessment and plan: 1. 40-year-old black male smoker with long history of severe hypertension associated with occipital headaches who presented last week with pancreatitis and left AMA, now back with headache and severe hypertension; blood pressure systolic was well over 200 mmHg, now 160 mmHg on Cardene infusion 2. Discontinue normal saline infusion to help with blood pressure control 3. Add amlodipine 10 mA daily and low-dose lisinopril HCTZ 10/12.5 now on daily (he reports that he had good result with 20/25 daily but he appears to have mild kidney failure); check a.m. creatinine electrolytes 4. Mild hyperglycemia 2; borderline diabetes? Which check A1c. 5. Modestly elevated amylase consistent with some degree of pancreatitis, although he has no abdominal pain 6. 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 His troponins are minimally elevated and there is no pattern suggest ACS. 7. We discussed at length his need to actually stop all smoking significant alcohol use or drug use to avoid stroke or other severe complications; he reports he is very motivated to do this. He has been off of his blood pressure medications for at least a week by his report, but says that he will take it regularly. 8. Given systolic murmur in the right second intercostal space, will check echocardiogram. Modest sinus tachycardia persists. 9. Replace potassium given his modest hypokalemia Current Visit: Yes (2) Dyslipidemia Status: Acute Current Visit: Yes (3) Hypertensive urgency Status: Acute Current Visit: Yes (4) Polysubstance abuse Status: Acute Current Visit: Yes (5) Pancreatitis Status: Acute Current Visit: No Qualifiers: Chronicity: acute Pancreatitis type: unspecified pancreatitis type Cardiology - PN: Subj Interval history: Mr. Munson still has an occipital headache that is unchanged since he came in yesterday. He has had this intermittently for years. He reports that one away from him when he took his blood pressure medicine regularly for a month ( lisinopril HCTZ 20/25 mg?). He reports that it often does well with Excedrin and with blood pressure medication. He is not having any chest discomfort shortness of breath. He is very hungry and wants food. He believes his headache goes when his blood pressure will give much better. Exam (Progress Note) - Constitutional Vitals: Period Temp Pulse Resp BP Sys/Schrader Pulse Ox Last 24 Hr 98 F-100.2 F 105-142 14-22 121-239/23-141 94-100 General appearance: normal weight, mild distress - Head Head exam: Present: normal inspection, normocephalic, atraumatic - Neck Neck exam: Present: normal inspection - Respiratory Respiratory exam: Present: clear to auscultation bilaterally. Absent: stridor, wheezes - Cardiovascular Cardiovascular exam: Present: systolic murmur (2 to 3/6 systolic murmur at the right second intercostal space radiating to the precordium), tachycardia. Absent: JVD, rubs - GI/Abdominal GI/Abdominal exam: Present: soft. Absent: tenderness - Extremities Exam Extremities exam: Absent: edema Result/EKG - Labs CBC & BMP: 07/02/16 00:54 07/02/16 00:54 Labs: Laboratory Results - last 24 hr 07/01/16 07/02/16 07/02/16 17:37 00:54 00:54 WBC 13.8 H RBC 4.82 Hgb 13.2 L Hct 40.8 L MCV 84.6 L MCH 27 MCHC 32.4 RDW 14.4 Plt Count 143 MPV 11.3 Neut % (Auto) 77.3 H Lymph % (Auto) 11.4 L [place] % (Auto) 8.8 Eos % (Auto) 0.6 Baso % (Auto) 0.4 Neut # (Auto) 10.7 H Lymph # (Auto) 1.6 [place] # (Auto) 1.2 H Eos # (Auto) 0.1 Baso # (Auto) 0.1 Immature Gran % 1.5 Nucleated RBC % 0.0 Immature Gran # 0.21 Nucleated RBCs # 0.00 Sodium Potassium Chloride Carbon Dioxide Anion Gap BUN Creatinine GFR Calculation BUN/Creatinine Ratio Glucose Calculated Osmolality Calcium Magnesium Total Bilirubin AST ALT Alkaline Phosphatase Troponin I 0.222 H 0.214 H B-Natriuretic Peptide Total Protein Albumin Globulin Albumin/Globulin Ratio Triglycerides Cholesterol LDL Cholesterol VLDL Cholesterol HDL Cholesterol Heart Disease Risk Ratio Free T4 TSH 3rd Generation 07/02/16 07/02/16 07/02/16 00:54 00:54 00:54 WBC RBC Hgb Hct MCV MCH MCHC RDW Plt Count MPV Neut % (Auto) Lymph % (Auto) [place] % (Auto) Eos % (Auto) Baso % (Auto) Neut # (Auto) Lymph # (Auto) [place] # (Auto) Eos # (Auto) Baso # (Auto) Immature Gran % Nucleated RBC % Immature Gran # Nucleated RBCs # Sodium 139 Potassium 3.2 L Chloride 103 Carbon Dioxide 23 Anion Gap 16.2 H BUN 14 Creatinine 1.60 H GFR Calculation 73 BUN/Creatinine Ratio 8.00 Glucose 128 H Calculated Osmolality 279.5 Calcium 7.3 L Magnesium 2.1 Total Bilirubin 0.40 AST 60 H ALT 102 H Alkaline Phosphatase 178 H Troponin I B-Natriuretic Peptide 107 H Total Protein 5.8 L Albumin 2.5 L Globulin 3.3 Albumin/Globulin Ratio 0.7 L Triglycerides 207 H Cholesterol 280 H LDL Cholesterol 198.0 VLDL Cholesterol 41.4 HDL Cholesterol 45 Heart Disease Risk Ratio 6.22 Free T4 1.19 TSH 3rd Generation 0.940
[2016-07-02] MEDS: ATORVASTATIN 40 MG TABLET PO SCH (09:30)
[2016-07-02] MEDS: ACETAMINOPHEN 500 MG TABLET PO SCH ×3 (09:30→22:17)
[2016-07-02] MEDS: amLODIPine 10 MG TABLET PO SCH (09:30)
[2016-07-02] MEDS: LISINOPRIL/HCTZ 10-12.5 MG TABLET PO SCH (09:30)
[2016-07-02] MEDS: POTASSIUM CHLORIDE 20 MEQ TABLET PO SCH (09:30)
[2016-07-02 12:25] LABS: Basophils # 0.1 10*3/uL (0.0-0.2); Basophils % 0.4 % (0.0-0.8); Eosinophils # 0.1 10*3/uL (0.0-0.87); Eosinophils % 0.4 % (0.00-10.9); Hematocrit 39.7 VOL% (42.0-52.0); Hemoglobin 12.9 GM/DL (14.0-18.0); Immature Granulocytes % 1.5 %; Immature Granulocytes Absolute 0.21 #; Lymphocytes # 1.6 10*3/uL (1.4-4.0); Lymphocytes % 11.4 % (21.2-54.2); Mean Corpuscular HGB Conc 32.5 GM/DL (32-36); Mean Corpuscular Hemoglobin 28 PG (27-34); Mean Corpuscular Volume 85.4 FL (87-102); Mean Platelet Volume 10.8 FL (9.6-12.0); Monocytes # 1.2 10*3/uL (0.11-0.8); Monocytes % 8.6 % (1.7-12.7); Neutrophils # 10.9 10*3/uL (1.4-7.4); Neutrophils % 77.7 % (38.7-73.9); Platelet Count 171 10*3/uL (130-400); Red Blood Count 4.65 10*6/uL (3.8-5.5); Red Cell Distribution Width 14.6 % (9.3-17.3)
[2016-07-02 12:55] LABS: Alanine Aminotransferase 76 U/L (16-61); Albumin 2.5 G/DL (3.4-5.0); Alkaline Phosphatase 152 U/L (45-117); Aspartate Amino Transferase 27 U/L (0-37); Bilirubin,Total < 0.39 MG/DL (0.2-1.0); Blood Urea Nitrogen 13 MG/DL (7-18); Calcium 7.9 MG/DL (8.5-10.1); Glucose 121 MG/DL (74-106); Osmolality,Calculated 275.7 MOS/KG (273-304); Potassium 3.4 MMOL/L (3.5-5.1); Sodium 138 MMOL/L (136-145); Total Protein 5.6 G/DL (6.4-8.3)
--- NOTE | 2016-07-02 13:58 | CT Report ---
Referring physician: Annabel Doan MD Exam: CT brain without contrast Date: 07/02/2016 Comparison: None Reason: Headache, hypertension Technique: Axial images of the head were obtained without the use of contrast. Total DLP was 1073.10 mGy*cm. Findings: No hydrocephalus or midline shift is present. There is no evidence of an definite acute infarction, recent intracranial hemorrhage or abnormal mass effect. Small hypodensities especially in the right centrum semi-ovale location and right cerebellum. Diffuse dilatation and tortuosity of the visualized vertebral and basilar arteries. The osseous structures appear intact. The mastoid air cells and visualized paranasal sinuses are clear. Impression: No acute intracranial abnormality is identified. Diffuse dilatation and tortuosity of the visualized vertebral and basilar arteries which is probably related to patient's known hypertension. No evidence of definite hemorrhage. Small hypodense findings in the right centrum semiovale and right cerebellar location which may be related to chronic infarcts. If the patient remains symptomatic, MRI may be helpful for further evaluation of the small findings. The CT exam was performed using one or more of the following dose reduction techniques: Automated exposure control and adjustment of the mA and/or kV according to patient size. PROCEDURE INTERPRETED AT [facility] Final Report Signed by: Dr. Adele Alex
--- NOTE | 2016-07-02 14:41 | Hospitalist Progress Note ---
Assessment and Plan (1) Hypertensive emergency Status: Acute Assessment and plan: Continue current management. Cardiology is assisting with medications. Current Visit: Yes (2) Headache Status: Acute Assessment and plan: Had fever and continues to have leukocytosis which very well maybe related to pancratitis, however in setting of chronic headaches and neckached, will Obtain LP. Current Visit: Yes (3) Elevated troponin Status: Acute Assessment and plan: NSTEMI type II, defer to cardiology. Current Visit: Yes (4) Cocaine use Status: Chronic Assessment and plan: Counselled on importance of discontinuation. Current Visit: Yes (5) Leukocytosis Status: Acute Assessment and plan: Etiology is unclear though it maybe related to pancreatitis. Current Visit: No Qualifiers: Leukocytosis type: unspecified Qualified Code(s): D72.829 - Elevated white blood cell count, unspecified (6) Pancreatitis Status: Acute Assessment and plan: Fluids, tolerating a diet. Current Visit: No Qualifiers: Chronicity: acute Pancreatitis type: unspecified pancreatitis type (7) Hyperlipidemia Status: Acute Assessment and plan: Will need oral statin initiated once more stable. Current Visit: Yes (8) Hyperglycemia Status: Acute Assessment and plan: May represent DM, will obtain a HgA1c. Current Visit: Yes (9) CKD (chronic kidney disease) stage 2, GFR 60-89 ml/min Status: Acute Assessment and plan: Stable, likely secondary to HTN. Current Visit: Yes Hospitalist: Subjective Interval history: Patient is extremely anxious about his medical condition and the stigma of cocaine use. States he hasnt used any since tuesday. C/O neck pain and headache unlike anything he had before. Blood presure continues to remain elevated, tachycardic. Denies abdominal pain, tolerating a diet well. Exam - Constitutional Vitals: Period Temp Pulse Resp BP Sys/Schrader Pulse Ox Last 24 Hr 98 F-100.2 F 102-142 14-22 121-239/23-141 94-100 General appearance: no acute distress - Head Head exam: Present: normocephalic, atraumatic - Eye Eye exam: Present: EOMI Pupils: Present: MONIE - ENT ENT exam: Present: normal exam - Neck Neck exam: Present: normal inspection - Respiratory Respiratory exam: Present: clear to auscultation bilaterally. Absent: rhonchi, wheezes - Cardiovascular Cardiovascular exam: Present: systolic murmur, tachycardia. Absent: gallop, irregular rhythm, rubs - GI/Abdominal GI/Abdominal exam: Present: normal bowel sounds, soft. Absent: distended, firm , guarding, tenderness, rebound - Extremities Exam Extremities exam: Present: normal inspection. Absent: calf tenderness, edema Results - Labs CBC & BMP: 07/02/16 12:12 07/02/16 12:12 Lab Results: I have reviewed the past 24 hour labs
--- NOTE | 2016-07-02 15:12 | ECHO Report ---
Owen Munson 07/02/2016 Exam Date: 08:57 Referring Physician: Nii HANKINSTechnologist: Age: 40 Ht (in): Wt (lb): MExam Location: [facility] Gender: Echo [id number]: HTN, tachycardia, murmurIndications: BP: / HR: SinusRhythm: Technical Quality: IMPRESSIONS Normal chamber sizes other than underfilled left ventricle 3+ concentric LVH Hyperdynamic LV systolic function without segmental wall motion abnormality; estimated ejection fraction is greater than 70% Mild left ventricular outflow tract gradient with peak 20 mmHg Trace to 1+ MR and TR with RVSP 15 mmHg plus RAP MEASUREMENTS (Male / Female) Normal Values 2D ECHO LV Diastolic Diameter PLAX 4.8 cm 4.2 - 5.9 / 3.9 - 5.3 cm LV Systolic Diameter PLAX 2.8 cm LV Fractional Shortening PLAX 41.1 % IVS Diastolic Thickness 2.2 cm 0.6 - 1.0 / 0.6 - 0.9 cm LVPW Diastolic Thickness 1.2 cm 0.6 - 1.0 / 0.6 - 0.9 cm RV Internal Dim ED PLAX 3.4 cm Aortic Root Diameter 3.1 cm LA Systolic Diameter LX 4.5 cm 3.0 - 4.0 / 2.7 - 3.8 cm DOPPLER TR Peak Velocity 195.0 cm/s TR Peak Gradient 15.2 mmHg FINDINGS Left Ventricle Severely increased septal wall thickness. Moderate concentric left ventricular hypertrophy. Left ventricular ejection fraction is estimated at 55-60 %. Right Ventricle Normal right ventricular size. Right Atrium Normal right atrial size. Left Atrium Mildly increased left atrial diameter. Mitral Valve Mildly thickened mitral valve with mild mitral regurgitation. Aortic Valve Aortic valve sclerosis without stenosis or regurgitation. Tricuspid Valve Morphologically normal tricuspid valve. Mild tricuspid valve regurgitation. Tricuspid regurgitation velocities suggest a PAP of 15.2 mmHg + RAP. Pulmonic Valve Morphologically normal pulmonic valve. Pericardium No pericardial effusion. Aorta Normal size aortic root and proximal ascending aorta. Brenden Cabrera (Electronically Signed) 02 July 2016 Final Date: 15:11
[2016-07-02] MEDS: ENOXAPARIN 40 MG/0.4 ML SYRINGE SUBCUT SCH (16:00)
--- NOTE | 2016-07-02 17:13 | Gastrointestinal Consult Note ---
Assessment and Plan (1) Pancreatitis Status: Acute Assessment and plan: The patient denies alcohol of a significant amount. No specific comment is made concerning the patient's gallbladder on his latest CT scan. He could benefit from an ultrasound looking for gallbladder sludge and biliary ductal dilatation. It is entirely possible that his pancreatitis may also be related to his cocaine use producing an ischemic phenomenon throughout his body affecting kidney liver and pancreas-- this may be why it is effecting the tail the pancreas disproportionately. The pancreatic enzymes are actually improved since several days ago. His hypertension is not allowing for high-level fluid replacement and so continued observation is all that we can really offer at this point. It is pancreatic enzymes appear to be increasing tomorrow we should consider putting him back on nothing by mouth versus clear liquid diet. Current Visit: No Qualifiers: Chronicity: acute Pancreatitis type: unspecified pancreatitis type (2) Elevated LFTs Status: Acute Assessment and plan: I suspect this may be either from stone or sludge disease versus exposure to cocaine as mentioned above. We will follow this level serially as well. Supportive care only for the blood pressure, if we can start fluids that'll be helpful in the future as well. Current Visit: Yes History of Present Illness Chief complaint: Resolving pancreatitis by laboratories and CT History of present illness: Mr. Munson is a 40 year old male who had been admitted to the hospital on with epigastric and left upper quadrant pain and a increase in his lipase level up to 1421. He was treated conservatively with hydration/IV fluids and by the next day this had dropped down to 441. He was discharged from the hospital but re-presented on 07/01/16 with inflammation on the tail of his pancreas by CT scan likely residual from his previous pancreatitis on 06/27/16. His lipase this admission has dropped down to 377. At this time the patient is not complaining of abdominal pain but rather chest pain. Note that his urine drug screen was positive for cocaine and his blood pressure on arrival was 242/ 66. Urine drug screen also positive for marijuana. His belly is pain is not bothering him at all at this point. He is extremely upset concerning his blood pressure which he feels is not being controlled with the IV Cardene. Would like to switched over to something by mouth. States that he's been eating grits eggs and sausage at home upon discharge and again denies alcohol intake. He has not had any trauma to his abdomen Home Medications Medication Instructions Recorded Confirmed Type Lisinopril/Hydrochlorothiazide 20 mg PO DAILY 06/27/16 07/01/16 History [Lisinopril-Hctz 20-25 mg Tab] Allergies Allergy/AdvReac Type Severity Reaction Status Date / Time No Known Drug Allergies AdvReac Verified 06/27/16 09:15 Medical,Surgical,& Family Hx - Medical History Cardio: History of: Hypertension No history of: CAD, ID Genitourinary: History of: Kidney Stones Gastrointestinal: History of: Pancreatitis Reproductive: Reports: Sexually Transmitted Disease (Gonorrhea) - Family History Family History: Reports;: Family Cancer (Father(pancreas)), Family Hypertension (Father,) - Social History Smoking Status: Current every day smoker Frequency of Alcohol Use: Occasionally Type of Drug Use: Cocaine, Marijuana Review of systems: Attempts to obtain a review of systems below the patient is unwilling to give pertinent negatives/positives, somewhat belligerent attitude Exam - Constitutional Vitals: Period Temp Pulse Resp BP Sys/Schrader Pulse Ox Last 24 Hr 98 F-98.7 F 102-129 14-22 121-239/23-130 94-100 General appearance: severe distress (distress appears to be mostly emotional) - Head Head exam: Present: normocephalic, atraumatic - Eye Eye exam: Present: EOMI Pupils: Present: MONIE - Respiratory Respiratory exam: Present: clear to auscultation bilaterally - Cardiovascular Cardiovascular exam: Present: regular rate and rhythm - GI/Abdominal GI/Abdominal exam: Present: distended, soft - Neurological Exam Neurological exam: Present: alert, oriented X3 - Psychiatric Psychiatric exam: Present: agitated, anxious - Skin Skin exam: Present: warm Results - Labs CBC & BMP: 07/02/16 12:12 07/02/16 12:12
[2016-07-02] MEDS ORDERED: LORazepam 2 MG/1 ML VIAL ONE (17:45)
[2016-07-02] MEDS: LORazepam 2 MG/1 ML VIAL IV PRN (17:50)
[2016-07-03] MEDS: ZALEPLON 5 MG CAPSULE PO PRN ×2 (03:29→20:36)
[2016-07-03] MEDS: LORazepam 2 MG/1 ML VIAL IV PRN (04:39)
[2016-07-03] MEDS: niCARdipine INJ 50 MG in SODIUM CHLORIDE 0.9% 230 ML IV SCH (04:39)
[2016-07-03 05:09] LABS: Calcium 8.2 MG/DL (8.5-10.1); Magnesium 2.4 MG/DL (1.8-2.4); Osmolality,Calculated 277.7 MOS/KG (273-304); Potassium 3.4 MMOL/L (3.5-5.1)
[2016-07-03 05:13] LABS: Alanine Aminotransferase 58 U/L (16-61); Albumin 2.3 G/DL (3.4-5.0); Alkaline Phosphatase 146 U/L (45-117); Aspartate Amino Transferase 18 U/L (0-37); Bilirubin,Direct < 0.1 MG/DL (0.0-0.20); Bilirubin,Indirect 0.7 MG/DL (0.0-1.0); Total Protein 5.4 G/DL (6.4-8.3)
[2016-07-03] MEDS: LISINOPRIL/HCTZ 10-12.5 MG TABLET PO SCH (08:29)
[2016-07-03] MEDS: amLODIPine 10 MG TABLET PO SCH (08:29)
[2016-07-03] MEDS: CARVEDILOL 6.25 MG TABLET PO SCH ×2 (08:30→20:36)
[2016-07-03] MEDS: PANTOPRAZOLE 40 MG TABLET PO SCH (08:30)
[2016-07-03] MEDS: POTASSIUM CHLORIDE 20 MEQ TABLET PO SCH (08:30)
[2016-07-03] MEDS: ATORVASTATIN 40 MG TABLET PO SCH (08:30)
[2016-07-03] MEDS: ACETAMINOPHEN 500 MG TABLET PO SCH ×3 (08:52→21:14)
[2016-07-03] MEDS ORDERED: CARVEDILOL 3.125 MG TABLET PO SCH (09:00)
--- NOTE | 2016-07-03 09:20 | Cardiology Progress Note ---
Assessment and Plan (1) Hyperglycemia Status: Acute Assessment and plan: 1. 40-year-old black male smoker with long history of severe hypertension associated with occipital headaches who presented last week with pancreatitis and left AMA, now back with headache and severe hypertension; blood pressure systolic was well over 200 mmHg, now 160 mmHg on Cardene infusion 2. Discontinue normal saline infusion to help with blood pressure control 3. Add amlodipine 10 mA daily and low-dose lisinopril HCTZ 10/12.5 now on daily (he reports that he had good result with 20/25 daily but he appears to have mild kidney failure); check a.m. creatinine electrolytes 4. Mild hyperglycemia 2; borderline diabetes? Which check A1c. 5. Modestly elevated amylase consistent with some degree of pancreatitis, although he has no abdominal pain 6. 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 His troponins are minimally elevated and there is no pattern suggest ACS. 7. We discussed at length his need to actually stop all smoking significant alcohol use or drug use to avoid stroke or other severe complications; he reports he is very motivated to do this. He has been off of his blood pressure medications for at least a week by his report, but says that he will take it regularly. 8. Given systolic murmur in the right second intercostal space, will check echocardiogram. Modest sinus tachycardia persists. 9. Replace potassium given his modest hypokalemia 07/03/2016: 1. Mr. Najera malignant hypertension is significantly improved though persists to some degree; to discontinue Cardene, and add Coreg 6.25 mg twice a day 2. 3+ LVH, and modest chronic renal insufficiency likely related to his uncontrolled hypertension for many years; check follow-up BMP to ensure stability on low-dose JENNIFER inhibitor and hydrochlorothiazide (he reports he was previously on 20/25 daily without problems) 3. Hyperdynamic LV systolic function was noted echocardiogram; his murmurs likely related to a mild left ventricular outflow tract gradient due to his LVH 4. GI workup for possible pancreatitis, etc. is being carried out 5. Needs complete cessation of all smoking in cocaine/illicit drug use; previous systolic about this at length. 6. Replace potassium as needed 7. Persistent mild hyperglycemia, with A1c borderline normal at 5.7 8. He can be transferred to the floor from a cardiac standpoint Current Visit: Yes (2) Dyslipidemia Status: Acute Current Visit: Yes (3) Hypertensive urgency Status: Acute Current Visit: Yes (4) Polysubstance abuse Status: Acute Current Visit: Yes (5) Pancreatitis Status: Acute Current Visit: No Qualifiers: Chronicity: acute Pancreatitis type: unspecified pancreatitis type Cardiology - PN: Subj Interval history: Mr. Munson is anxious to get out of the unit, as he has had no headache since I saw him yesterday morning and is feeling much better. He denies any problems with shortness of breath chest pain or any symptoms whatsoever. Exam (Progress Note) - Constitutional Vitals: Period Temp Pulse Resp BP Sys/Schrader Pulse Ox Last 24 Hr 97.1 F-99.5 F 97-129 14-32 100-193/63-129 92-100 General appearance: normal weight, no acute distress - Head Head exam: Present: normal inspection, normocephalic, atraumatic - Neck Neck exam: Present: normal inspection - Respiratory Respiratory exam: Present: clear to auscultation bilaterally. Absent: wheezes - Cardiovascular Cardiovascular exam: Present: tachycardia. Absent: irregular rhythm - GI/Abdominal GI/Abdominal exam: Present: soft. Absent: tenderness - Extremities Exam Extremities exam: Absent: edema Result/EKG - Labs CBC & BMP: 07/02/16 12:12 07/03/16 04:02 Labs: Laboratory Results - last 24 hr 07/02/16 07/02/16 07/02/16 08:48 12:12 12:12 WBC 14.0 H RBC 4.65 Hgb 12.9 L Hct 39.7 L MCV 85.4 L MCH 28 MCHC 32.5 RDW 14.6 Plt Count 171 MPV 10.8 Neut % (Auto) 77.7 H Lymph % (Auto) 11.4 L [place] % (Auto) 8.6 Eos % (Auto) 0.4 Baso % (Auto) 0.4 Neut # (Auto) 10.9 H Lymph # (Auto) 1.6 [place] # (Auto) 1.2 H Eos # (Auto) 0.1 Baso # (Auto) 0.1 Immature Gran % 1.5 Nucleated RBC % 0.0 Immature Gran # 0.21 Nucleated RBCs # 0.00 INR PT Patient/Control Mix Sodium 138 Potassium 3.4 L Chloride 103 Carbon Dioxide 25 Anion Gap 13.4 BUN 13 Creatinine 1.60 H GFR Calculation 74 BUN/Creatinine Ratio 8.00 Glucose 121 H Hemoglobin A1c Calculated Osmolality 275.7 Calcium 7.9 L Magnesium Total Bilirubin < 0.39 Direct Bilirubin Indirect Bilirubin AST 27 ALT 76 H Alkaline Phosphatase 152 H Troponin I 0.179 H Total Protein 5.6 L Albumin 2.5 L Globulin 3.1 Albumin/Globulin Ratio 0.8 L Amylase Lipase 07/02/16 07/03/16 07/03/16 12:12 04:02 04:02 WBC RBC Hgb Hct MCV MCH MCHC RDW Plt Count MPV Neut % (Auto) Lymph % (Auto) [place] % (Auto) Eos % (Auto) Baso % (Auto) Neut # (Auto) Lymph # (Auto) [place] # (Auto) Eos # (Auto) Baso # (Auto) Immature Gran % Nucleated RBC % Immature Gran # Nucleated RBCs # INR 1.0 PT Patient/Control Mix 10.0 Sodium 138 Potassium 3.4 L Chloride 102 Carbon Dioxide 25 Anion Gap 14.4 BUN 15 Creatinine 1.80 H GFR Calculation 64 BUN/Creatinine Ratio 8.00 Glucose 142 H Hemoglobin A1c Calculated Osmolality 277.7 Calcium 8.2 L Magnesium 2.4 Total Bilirubin Direct Bilirubin Indirect Bilirubin AST ALT Alkaline Phosphatase Troponin I Total Protein Albumin Globulin Albumin/Globulin Ratio Amylase 135 H Lipase 374.0 07/03/16 07/03/16 04:02 04:03 WBC RBC Hgb Hct MCV MCH MCHC RDW Plt Count MPV Neut % (Auto) Lymph % (Auto) [place] % (Auto) Eos % (Auto) Baso % (Auto) Neut # (Auto) Lymph # (Auto) [place] # (Auto) Eos # (Auto) Baso # (Auto) Immature Gran % Nucleated RBC % Immature Gran # Nucleated RBCs # INR PT Patient/Control Mix Sodium Potassium Chloride Carbon Dioxide Anion Gap BUN Creatinine GFR Calculation BUN/Creatinine Ratio Glucose Hemoglobin A1c 5.7 Calculated Osmolality Calcium Magnesium Total Bilirubin 0.80 Direct Bilirubin < 0.1 Indirect Bilirubin 0.7 AST 18 ALT 58 Alkaline Phosphatase 146 H Troponin I Total Protein 5.4 L Albumin 2.3 L Globulin Albumin/Globulin Ratio Amylase Lipase
--- NOTE | 2016-07-03 12:08 | Hospitalist Progress Note ---
Assessment and Plan - Time spent with patient Time spent with patient: Greater than 30 minutes (1) Hypertensive emergency Status: Acute Assessment and plan: Continue current management. Cardiology is assisting with medications. He is far more stable today, will transfer to the floor. Current Visit: Yes (2) Headache Status: Acute Assessment and plan: Refused lumbar puncture. No longer has a headache or neck pain. Current Visit: Yes (3) Elevated troponin Status: Acute Assessment and plan: NSTEMI type II, defer to cardiology. Current Visit: Yes (4) Cocaine use Status: Chronic Assessment and plan: Counselled on importance of discontinuation. Current Visit: Yes (5) Leukocytosis Status: Acute Assessment and plan: Etiology is unclear though it maybe related to pancreatitis. Current Visit: No Qualifiers: Leukocytosis type: unspecified Qualified Code(s): D72.829 - Elevated white blood cell count, unspecified (6) Pancreatitis Status: Acute Assessment and plan: Fluids, tolerating a diet. Current Visit: No Qualifiers: Chronicity: acute Pancreatitis type: unspecified pancreatitis type (7) Hyperlipidemia Status: Acute Assessment and plan: Will need oral statin initiated once more stable. Current Visit: Yes (8) Hyperglycemia Status: Acute Assessment and plan: May represent DM, will obtain a HgA1c. Current Visit: Yes (9) CKD (chronic kidney disease) stage 2, GFR 60-89 ml/min Status: Acute Assessment and plan: Stable, likely secondary to HTN. Current Visit: Yes Hospitalist: Subjective Interval history: No complaints, he has been having a mild low grade elevated temperature. No abdominal pain, headache or neck pain. Refused LP yesterday. Exam - Constitutional Vitals: Period Temp Pulse Resp BP Sys/Schrader Pulse Ox Last 24 Hr 97.1 F-99.5 F 97-129 14-32 100-193/63-129 92-100 General appearance: no acute distress - Head Head exam: Present: normocephalic, atraumatic - Eye Eye exam: Present: EOMI Pupils: Present: MONIE - ENT ENT exam: Present: normal exam - Neck Neck exam: Present: normal inspection - Respiratory Respiratory exam: Present: clear to auscultation bilaterally. Absent: rhonchi, wheezes - Cardiovascular Cardiovascular exam: Present: regular rate and rhythm. Absent: gallop, rubs, systolic murmur - GI/Abdominal GI/Abdominal exam: Present: normal bowel sounds, soft. Absent: distended, firm , guarding, tenderness, rebound - Extremities Exam Extremities exam: Present: normal inspection. Absent: calf tenderness, edema Results - Labs CBC & BMP: 07/02/16 12:12 07/03/16 04:02 Lab Results: I have reviewed the past 24 hour labs
--- NOTE | 2016-07-03 12:25 | Gastrointestinal Progress Note ---
Assessment and Plan (1) Pancreatitis Status: Acute Assessment and plan: The patient denies alcohol of a significant amount. No specific comment is made concerning the patient's gallbladder on his latest CT scan. He could benefit from an ultrasound looking for gallbladder sludge and biliary ductal dilatation. It is entirely possible that his pancreatitis may also be related to his cocaine use producing an ischemic phenomenon throughout his body affecting kidney liver and pancreas-- this may be why it is effecting the tail the pancreas disproportionately. The pancreatic enzymes are actually improved since several days ago. His hypertension is not allowing for high-level fluid replacement and so continued observation is all that we can really offer at this point. It is pancreatic enzymes appear to be increasing tomorrow we should consider putting him back on nothing by mouth versus clear liquid diet. 07/03/16-- The pancreatitis may be related to previous cocaine use with ischemia to this as well as multiple other and organs. Gallbladder not completely ruled out as a source. The patient denies significant alcohol intake but the veracity of his statements is unclear. At this point there is little else to offer the patient as he seems to be doing adequately on his own with improving abdominal pain and normal lipase levels, despite advance of diet. Current Visit: No Qualifiers: Chronicity: acute Pancreatitis type: unspecified pancreatitis type (2) Elevated LFTs Status: Acute Assessment and plan: I suspect this may be either from stone or sludge disease versus exposure to cocaine as mentioned above. We will follow this level serially as well. Supportive care only for the blood pressure, if we can start fluids that'll be helpful in the future as well. 07/03/16--these levels are continuing to improve as he gets further from his last cocaine use. The patient denies that the cocaine is involved however with hypertension and end organ damage and multiple organs it certainly seems possible/probable. The damage appears to be improving slowly over time as expected. No further recommendations for this patient. Please reconsult if you have further issues to address. Current Visit: Yes Gastroenterology - PN: Subj Interval history: The patient is asking me specifically today about his erectile dysfunction unfortunately was not able to add any additional information from what Dr. Parada mention to him earlier about this being related to his cocaine and perhaps blood pressure medication use. From a GI standpoint his belly pain is down to 3 out of 10 in intensity and he is able to handle a full diet including lasagna at the bedside. Despite this his lipase levels is remaining within normal limits and I strongly suspect that he may have had an ischemic event involving his pancreas/liver/kidneys as all these organs appear to be involved. Exam (Progress Note) - Constitutional Vitals: Period Temp Pulse Resp BP Sys/Schrader Pulse Ox Last 24 Hr 97.1 F-99.5 F 97-129 14-32 100-193/63-129 92-100 General appearance: no acute distress - Eye Eye exam: Present: EOMI Pupils: Present: MONIE - Respiratory Respiratory exam: Present: clear to auscultation bilaterally - Cardiovascular Cardiovascular exam: Present: regular rate and rhythm - GI/Abdominal GI/Abdominal exam: Present: normal bowel sounds, distended (slightly), tenderness (epigastric, very mild), soft. Absent: guarding, rebound - Extremities Exam Extremities exam: Absent: edema - Neurological Exam Neurological exam: Present: alert, oriented X3, CN II-XII intact. Absent: motor sensory deficit - Psychiatric Psychiatric exam: Present: normal affect, normal mood - Skin Skin exam: Present: warm Results - Labs CBC & BMP: 07/02/16 12:12 07/03/16 04:02
[2016-07-03] MEDS: ENOXAPARIN 40 MG/0.4 ML SYRINGE SUBCUT SCH (15:49)
[2016-07-04] MEDS: LORazepam 2 MG/1 ML VIAL IV PRN (02:08)
[2016-07-04 05:05] LABS: Basophils # 0.1 10*3/uL (0.0-0.2); Basophils % 0.6 % (0.0-0.8); Eosinophils # 0.2 10*3/uL (0.0-0.87); Eosinophils % 1.8 % (0.00-10.9); Hematocrit 39.9 VOL% (42.0-52.0); Hemoglobin 12.6 GM/DL (14.0-18.0); Immature Granulocytes % 3.7 %; Immature Granulocytes Absolute 0.43 #; Lymphocytes # 2.5 10*3/uL (1.4-4.0); Lymphocytes % 21.5 % (21.2-54.2); Mean Corpuscular HGB Conc 31.6 GM/DL (32-36); Mean Corpuscular Hemoglobin 27 PG (27-34); Mean Corpuscular Volume 85.6 FL (87-102); Mean Platelet Volume 10.5 FL (9.6-12.0); Monocytes # 1.3 10*3/uL (0.11-0.8); Monocytes % 10.9 % (1.7-12.7); Neutrophils # 7.2 10*3/uL (1.4-7.4); Neutrophils % 61.5 % (38.7-73.9); Platelet Count 206 10*3/uL (130-400); Red Blood Count 4.66 10*6/uL (3.8-5.5); Red Cell Distribution Width 14.7 % (9.3-17.3); White Blood Count 11.6 10*3/uL (4.5-13.71)
[2016-07-04 05:33] LABS: Calcium 8.1 MG/DL (8.5-10.1); Osmolality,Calculated 278.5 MOS/KG (273-304); Potassium 3.4 MMOL/L (3.5-5.1)
[2016-07-04] MEDS: ACETAMINOPHEN 500 MG TABLET PO SCH (07:21)
--- NOTE | 2016-07-04 08:34 | Cardiology Progress Note ---
Assessment and Plan (1) Hyperglycemia Status: Acute Assessment and plan: 1. 40-year-old black male smoker with long history of severe hypertension associated with occipital headaches who presented last week with pancreatitis and left AMA, now back with headache and severe hypertension; blood pressure systolic was well over 200 mmHg, now 160 mmHg on Cardene infusion 2. Discontinue normal saline infusion to help with blood pressure control 3. Add amlodipine 10 mA daily and low-dose lisinopril HCTZ 10/12.5 now on daily (he reports that he had good result with 20/25 daily but he appears to have mild kidney failure); check a.m. creatinine electrolytes 4. Mild hyperglycemia 2; borderline diabetes? Which check A1c. 5. Modestly elevated amylase consistent with some degree of pancreatitis, although he has no abdominal pain 6. 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 His troponins are minimally elevated and there is no pattern suggest ACS. 7. We discussed at length his need to actually stop all smoking significant alcohol use or drug use to avoid stroke or other severe complications; he reports he is very motivated to do this. He has been off of his blood pressure medications for at least a week by his report, but says that he will take it regularly. 8. Given systolic murmur in the right second intercostal space, will check echocardiogram. Modest sinus tachycardia persists. 9. Replace potassium given his modest hypokalemia 07/03/2016: 1. Mr. Najera malignant hypertension is significantly improved though persists to some degree; to discontinue Cardene, and add Coreg 6.25 mg twice a day 2. 3+ LVH, and modest chronic renal insufficiency likely related to his uncontrolled hypertension for many years; check follow-up BMP to ensure stability on low-dose JENNIFER inhibitor and hydrochlorothiazide (he reports he was previously on 20/25 daily without problems) 3. Hyperdynamic LV systolic function was noted echocardiogram; his murmurs likely related to a mild left ventricular outflow tract gradient due to his LVH 4. GI workup for possible pancreatitis, etc. is being carried out 5. Needs complete cessation of all smoking in cocaine/illicit drug use; previous systolic about this at length. 6. Replace potassium as needed 7. Persistent mild hyperglycemia, with A1c borderline normal at 5.7 8. He can be transferred to the floor from a cardiac standpoint 07/04/2016: 1. Mr. Munson is completely asymptomatic since yesterday, and is anxious for discharge 2. His hypertension is much better controlled and can be managed as an outpatient 3. Would increase Coreg to 12.5 millions twice a day 4. 3+ LVH with hyperdynamic LV function is likely related to his long-standing uncontrolled hypertension; we discussed this at length 5. We discussed at length his need to discontinue all smoking or illicit drug use; he is adamant that he is "through gallbladder"; he has 3 children; I discussed particularly is high stroke risk if he does not have a lifestyle change, and comply with antihypertensive medication. 6. I will be happy to see him in follow-up in about 3 weeks with lab, but long- term he just needs a good primary care doctor to control his blood pressure and follow CRI; we also discussed his need to avoid significant NSAID use Current Visit: Yes (2) Dyslipidemia Status: Acute Current Visit: Yes (3) Hypertensive urgency Status: Acute Current Visit: Yes (4) Polysubstance abuse Status: Acute Current Visit: Yes (5) Pancreatitis Status: Acute Current Visit: No Qualifiers: Chronicity: acute Pancreatitis type: unspecified pancreatitis type Cardiology - PN: Subj Interval history: Mr. Munson feels quite well and is eating his breakfast. He is anxious for discharge. He reports he is done with "all at bad stuff" (referring to smoking cocaine, etc.). He does deny significant alcohol use, although his amylase was a bit elevated on admission. He is examining without difficulty. His headache was gone yesterday and tomorrow. He is asymptomatic. He is anxious to get a good doctor to follow-up with in [place]. Exam (Progress Note) - Constitutional Vitals: Period Temp Pulse Resp BP Sys/Schrader Pulse Ox Last 24 Hr 97.2 F-99.2 F 78-119 15-22 133-178/97-126 98-100 General appearance: normal weight, no acute distress - Head Head exam: Present: normal inspection, normocephalic, atraumatic - Neck Neck exam: Present: normal inspection - Respiratory Respiratory exam: Present: clear to auscultation bilaterally. Absent: rhonchi, wheezes - Cardiovascular Cardiovascular exam: Present: regular rate and rhythm. Absent: diastolic murmur , rubs - GI/Abdominal GI/Abdominal exam: Present: soft. Absent: tenderness - Extremities Exam Extremities exam: Absent: edema Result/EKG - Labs CBC & BMP: 07/04/16 04:44 07/04/16 04:44 Labs: Laboratory Results - last 24 hr 07/04/16 07/04/16 04:44 04:44 WBC 11.6 RBC 4.66 Hgb 12.6 L Hct 39.9 L MCV 85.6 L MCH 27 MCHC 31.6 L RDW 14.7 Plt Count 206 D MPV 10.5 Neut % (Auto) 61.5 Lymph % (Auto) 21.5 [place] % (Auto) 10.9 Eos % (Auto) 1.8 Baso % (Auto) 0.6 Neut # (Auto) 7.2 Lymph # (Auto) 2.5 [place] # (Auto) 1.3 H Eos # (Auto) 0.2 Baso # (Auto) 0.1 Immature Gran % 3.7 Nucleated RBC % 0.0 Immature Gran # 0.43 Nucleated RBCs # 0.00 Sodium 139 Potassium 3.4 L Chloride 102 Carbon Dioxide 28 Anion Gap 12.4 BUN 19 H Creatinine 1.80 H GFR Calculation 64 BUN/Creatinine Ratio 10.00 Glucose 104 Calculated Osmolality 278.5 Calcium 8.1 L Specialty Discharge - Follow Up or Referrals Follow up with: Brenden Cabrera MD [Physician] - 2 Weeks (For Mag, BMP and EKG)
[2016-07-04] MEDS ORDERED: CARVEDILOL 12.5 MG TABLET PO SCH (09:00)
[2016-07-04] MEDS: ATORVASTATIN 40 MG TABLET PO SCH (09:06)
[2016-07-04] MEDS: POTASSIUM CHLORIDE 20 MEQ TABLET PO SCH (09:06)
[2016-07-04] MEDS: LISINOPRIL/HCTZ 10-12.5 MG TABLET PO SCH (09:06)
[2016-07-04] MEDS: PANTOPRAZOLE 40 MG TABLET PO SCH (09:06)
[2016-07-04] MEDS: amLODIPine 10 MG TABLET PO SCH (09:07)
--- NOTE | 2016-07-04 11:22 | Discharge Summary ---
Hospital Course - Hospital Course Hospital Course: Mr Munson presented with chest discomfort, abdominal pain and HTN Urgency. CT of the abdomen revealed inflammatory changes surrounding the tail of the pancreas. His urine screen for cocaine was positive. Lipase was noted to be normal. BP was 233/141. He was initiated on a cardene drip and transferred to the ICU for IV blood pressure management. Pancreatitis: GI was consulted. His diet was advanced. He tolerated regular food with no abdominal pain. Chest pain: Cardiology was consulted regarding his chest discomfort. Troponins were mildly elevated however downtrending. LDL is 198 he was started on Lipitor. He will follow up with Cardiology as an outpatient. Hypertensive urgency: Echocardiogram revealed hypertensive cardiomyopathy. His medications were adjusted from IV to oral and after several days he was initiated on a beta chris. He is instructed to discontinue cocaine use given the adverse reaction with a beta chris. Cocaine use: Patient was counseled on discontinuing illicit drug use. - Time spent with patient Time with patient DS: Greater than 30 minutes Diagnosis - Discharge Diagnosis (1) Hypertensive emergency Status: Acute (2) Headache Status: Acute (3) Elevated troponin Status: Acute (4) Cocaine use Status: Chronic (5) Leukocytosis Status: Acute (6) Pancreatitis Status: Acute (7) Hyperlipidemia Status: Acute (8) Hyperglycemia Status: Acute (9) CKD (chronic kidney disease) stage 2, GFR 60-89 ml/min Status: Acute Specialty Discharge - Follow Up or Referrals Follow up with: Brenden Cabrera MD [Physician] - 2 Weeks (For Mag, BMP and EKG) Discharge Plan - Discharge Data Disposition: Disch To Home/Self Care Condition at Discharge: Stable Discharge Diet: advance to your usual diet Activity: resume usual activities as tolerated - Discharge Medications New Atorvastatin [Lipitor] 40 mg PO DAILY #30 tablet Carvedilol [Coreg] 12.5 mg PO BID #60 tablet Lisinopril/Hctz 10-12.5 [Prinzide 10-12.5] 1 tablet PO DAILY #30 tablet amLODIPine [Norvasc] 10 mg PO DAILY #30 tablet Discontinued Lisinopril/Hydrochlorothiazide [Lisinopril-Hctz 20-25 mg Tab] 20 mg PO DAILY - Follow Up or Referral Follow Up: Brenden Cabrera MD [Physician] - 2 Weeks (For Mag, BMP and EKG) - Forms/Instructions Exam - Constitutional Vitals: Period Temp Pulse Resp BP Sys/Schrader Pulse Ox Last 24 Hr 97.2 F-99.2 F 78-109 16-20 148-178/102-132 98-100 General appearance: normal weight, no acute distress - Head Head exam: Present: normal inspection, normocephalic, atraumatic - Eye Eye exam: Present: EOMI Pupils: Present: MONIE - ENT ENT exam: Present: normal exam - Neck Neck exam: Present: normal inspection - Respiratory Respiratory exam: Present: clear to auscultation bilaterally - Cardiovascular Cardiovascular exam: Present: regular rate and rhythm - GI/Abdominal GI/Abdominal exam: Present: normal bowel sounds - Extremities Exam Extremities exam: Present: normal inspection Discharge Results Labs on day of discharge: Labs from last 24 hours 07/04/16 07/04/16 04:44 04:44 WBC 11.6 RBC 4.66 Hgb 12.6 L Hct 39.9 L MCV 85.6 L MCH 27 MCHC 31.6 L RDW 14.7 Plt Count 206 D MPV 10.5 Neut % (Auto) 61.5 Lymph % (Auto) 21.5 [place] % (Auto) 10.9 Eos % (Auto) 1.8 Baso % (Auto) 0.6 Neut # (Auto) 7.2 Lymph # (Auto) 2.5 [place] # (Auto) 1.3 H Eos # (Auto) 0.2 Baso # (Auto) 0.1 Immature Gran % 3.7 Nucleated RBC % 0.0 Immature Gran # 0.43 Nucleated RBCs # 0.00 Sodium 139 Potassium 3.4 L Chloride 102 Carbon Dioxide 28 Anion Gap 12.4 BUN 19 H Creatinine 1.80 H GFR Calculation 64 BUN/Creatinine Ratio 10.00 Glucose 104 Calculated Osmolality 278.5 Calcium 8.1 L DS: Provider Date of admission: 07/01/16 14:39 Primary care physician: . No PCP Attending physician on admission: Annabel Parada MD Consults: 07/01/16 14:57 Consult to Physician [CONS] Routine Comment: elevated troponin Consulting Provider: Brenden Cabrear Person Notified: CIS Date Notified: 07/01/16 Time Notified: 16:00 Consult Notification Comment: SPOKE TO CIS AND ALSO SPOKE WITH DR. HALL ABOUT NEW CONSULT 07/01/16 15:19 Consult to Pharmacy [CONS] Routine Reason for Pharmacy Consult: Adjust Meds Renal Funct 07/01/16 16:19 Consult to Dietitian [CONS] Routine Reason for Dietitian: Diet Recommendations Discharging clinician: Annabel Parada MD Expected date of discharge: 07/04/16
[2016-07-04 12:40] VITALS: BP 173/123
== END 2016-07-04 12:45 | disposition home or self-care (01) | DRG 304 ==
LOC: N.ED 12:00 → N.EDINP 14:39 → N.CC 15:04 → N.2E 07-03 12:52
PROVIDERS: ADMIT Internal Medicine; ATTEND Internal Medicine

== ENCOUNTER 2016-10-15 20:34 | Inpatient (IN) ==
[2016-10-15 21:46] LABS: Basophils # 0.1 10*3/uL (0.0-0.2); Basophils % 0.4 % (0.0-0.8); Eosinophils # 0.1 10*3/uL (0.0-0.87); Eosinophils % 0.6 % (0.00-10.9); Hematocrit 43.7 VOL% (42.0-52.0); Hemoglobin 14.5 GM/DL (14.0-18.0); Immature Granulocytes % 0.7 %; Immature Granulocytes Absolute 0.14 #; Lymphocytes % 10.2 % (21.2-54.2); Mean Corpuscular HGB Conc 33.2 GM/DL (32-36); Mean Corpuscular Hemoglobin 27 PG (27-34); Mean Corpuscular Volume 82.1 FL (87-102); Mean Platelet Volume 10.4 FL (9.6-12.0); Monocytes # 1.3 10*3/uL (0.11-0.8); Monocytes % 6.8 % (1.7-12.7); Neutrophils # 16.1 10*3/uL (1.4-7.4); Neutrophils % 81.3 % (38.7-73.9); Platelet Count 224 T/CUMM (130-400); Red Blood Count 5.32 MC/CUMM (3.8-5.5); Red Cell Distribution Width 15.3 % (9.3-17.3); White Blood Count 19.8 T/CUMM (4-12)
--- NOTE | 2016-10-15 22:00 | Emergency Department Note ---
Javi Diaz Brittany, am scribing for, and in the presence of, Shalom Sepulveda MD 21:48. Derick Diaz Robert M, MD, personally performed the services described in this documentation, ascribed by Rhoda Caldwell in my presence, and it is both accurate and complete . Arrival - Arrival Chief Complaint: Abdominal / Flank Pain Stated Complaint: abdominal pain/b/p high/poop sack damaged ED Nursing Triage Note: Pt is a transfere from [facility] with c/o abdominal pain and HTN. Mode of Arrival: Ambulatory Limitations: No Limitations Source: Patient, RN Notes Reviewed Time Seen by Provider: 10/15/16 21:35 - History of Present Illness HPI Narrative: Patient is a 41 y/o black male presenting to the ED from [facility] for further evaluation of abdominal pain and HTN. Patient reports that since June of 2016 he has been battling this abdominal pain. He reports that he has been seen for this and was diagnosed at one time with Pancreatitis, but states that as of now physician has leaned more towards Diverticulitis after having had a scope performed. Patient states he has had some N/V episodes each morning and wakes in the middle of the night coughing with a dry throat feeling as if he's dehydrated. He reports he presented to clinic earlier today for further evaluation of symptoms he has been experiencing lately upon triage there he was noted to by hypertensive and staff there urged him to present to the ER for further treatment. He denies receiving antihypertensives at the other facility. He contributes current HTN to lack of medications for 12 days secondary to issues with insurance. He denies use of cocaine or any other recreational drugs. He has no other complaint/pain. Allergies/Adverse Reactions: Allergies Allergy/AdvReac Type Severity Reaction Status Date / Time No Known Drug Allergies AdvReac Verified 06/27/16 09:15 Home Medications: Home Medications Medication Instructions Recorded Confirmed Type Atorvastatin [Lipitor] 40 mg PO DAILY #30 tablet 07/04/16 10/15/16 Rx Carvedilol [Coreg] 12.5 mg PO BID #60 tablet 07/04/16 10/15/16 Rx Lisinopril/Hctz 10-12.5 [Prinzide 1 tablet PO DAILY #30 tablet 07/04/16 Rx 10-12.5] amLODIPine [Norvasc] 10 mg PO DAILY #30 tablet 07/04/16 10/15/16 Rx Review of System - Review of System 12 point system: reviewed and no additional remarkable complaints except as stated - Review of System Eyes: Absent: vision change Respiratory: Absent: respiratory distress Cardiovascular: Present: as per HPI Gastrointestinal: Present: abdominal pain, nausea, vomiting Genitourinary male: Absent: urgency, dysuria, frequency Musculoskeletal: Absent: arm pain, back pain, leg pain, neck pain Skin: Absent: rash Neurological: Absent: headache Medical,Surgical,& Family Hx - Medical History Cardio: History of: Hypertension No history of: CAD, HI Genitourinary: History of: Kidney Stones Gastrointestinal: History of: Pancreatitis Reproductive: Reports: Sexually Transmitted Disease (Gonorrhea) - Family History Family History: Reports;: Family Cancer (Father(pancreas)), Family Hypertension (Father,) - Social History Smoking Status: Current every day smoker Type of Drug Use: Cocaine, Marijuana Exam Vital Signs: Vital Signs Temperature 99.3 F 10/15/16 21:27 Pulse Rate 93 H 10/15/16 22:38 Respiratory Rate 24 10/15/16 22:38 Blood Pressure 186/133 10/15/16 22:38 O2 Sat by Pulse Oximetry 95 10/15/16 22:38 - General General appearance: alert, in no apparent distress - Head Head exam: Present: atraumatic, normocephalic, normal inspection - Eye Eye exam: Present: normal appearance, PERRL, EOMI - ENT ENT exam: Present: normal exam, normal oropharynx - Neck Neck exam: Present: normal inspection, full ROM, trachea midline - Chest Chest inspection: Present: normal inspection, symmetric chest wall rise - Respiratory Respiratory exam: Present: normal lung sounds bilaterally. Absent: rales, rhonchi, wheezes - Cardiovascular Cardiovascular exam: Present: regular rate, normal rhythm, normal heart sounds. Absent: murmur, rubs, gallop - Abdominal Exam Abdominal exam: Present: soft, normal bowel sounds. Absent: distention, tenderness - Extremities Exam Extremities exam: Present: normal inspection - Back Exam Back exam: Present: normal inspection - Neurological Exam Neurological exam: Present: alert, oriented X3, CN II-XII intact. Absent: motor sensory deficit - Psychiatric Psychiatric exam: Present: normal affect, normal mood - Skin Skin exam: Present: warm, dry, intact, normal color Course - Consultations Consultation #1: Dr. Mercado will evaluate and admit the patient. Time: 23:07 Results - Labs CBC & BMP: 10/15/16 21:35 10/15/16 21:35 Lab Results: I have reviewed the patients labs Labs: Lab Results WBC 19.8 T/CUMM (4-12) H 10/15/16 21:35 RBC 5.32 MC/CUMM (3.8-5.5) 10/15/16 21:35 Hgb 14.5 GM/DL (14.0-18.0) 10/15/16 21:35 Hct 43.7 VOL% (42.0-52.0) 10/15/16 21:35 MCV 82.1 FL (87-102) L 10/15/16 21:35 MCH 27 PG (27-34) 10/15/16 21:35 MCHC 33.2 GM/DL (32-36) 10/15/16 21:35 RDW 15.3 % (9.3-17.3) 10/15/16 21:35 Plt Count 224 T/CUMM (130-400) 10/15/16 21:35 MPV 10.4 FL (9.6-12.0) 10/15/16 21:35 Neut % (Auto) 81.3 % (38.7-73.9) H 10/15/16 21:35 Lymph % (Auto) 10.2 % (21.2-54.2) L 10/15/16 21:35 [place] % (Auto) 6.8 % (1.7-12.7) 10/15/16 21:35 Eos % (Auto) 0.6 % (0.00-10.9) 10/15/16 21:35 Baso % (Auto) 0.4 % (0.0-0.8) 10/15/16 21:35 Neut # (Auto) 16.1 10*3/uL (1.4-7.4) H 10/15/16 21:35 Lymph # (Auto) 2.0 10*3/uL (1.4-4.0) 10/15/16 21:35 [place] # (Auto) 1.3 10*3/uL (0.11-0.8) H 10/15/16 21:35 Eos # (Auto) 0.1 10*3/uL (0.0-0.87) 10/15/16 21:35 Baso # (Auto) 0.1 10*3/uL (0.0-0.2) 10/15/16 21:35 Immature Gran % 0.7 % 10/15/16 21:35 Nucleated RBC % 0.0 /100WBC 10/15/16 21:35 Immature Gran # 0.14 # 10/15/16 21:35 Nucleated RBCs # 0.00 10*3/uL 10/15/16 21:35 Sodium 133 MMOL/L (136-145) L 10/15/16 21:35 Potassium 2.3 MMOL/L (3.5-5.1) L* 10/15/16 21:35 Chloride 91 MMOL/L (98-107) L 10/15/16 21:35 Carbon Dioxide 31 MMOL/L (21-32) 10/15/16 21:35 Anion Gap 13.3 MMOL/L (5.0-15.0) 10/15/16 21:35 BUN 20 MG/DL (7-18) H 10/15/16 21:35 Creatinine 2.10 MG/DL (0.70-1.30) H 10/15/16 21:35 GFR Calculation 52 ML/MIN 10/15/16 21:35 BUN/Creatinine Ratio 9.00 RATIO (6.00-20.00) 10/15/16 21:35 Glucose 131 MG/DL (74-106) H 10/15/16 21:35 Calculated Osmolality 270.4 MOS/KG (273-304) L 10/15/16 21:35 Calcium 9.3 MG/DL (8.5-10.1) 10/15/16 21:35 Magnesium 2.4 MG/DL (1.8-2.4) 10/15/16 21:35 Total Creatine Kinase 343 U/L (39-308) H 10/15/16 21:35 CK-MB (CK-2) 3.4 U/L (0.5-3.6) 10/15/16 21:35 Troponin I 0.153 NG/ML (0.00-0.045) H 10/15/16 21:35 Amylase 422 U/L (25-115) H 10/15/16 21:35 Lipase 2162.0 U/L (73-393) H 10/15/16 21:35 Urine Color Straw (Yellow) 10/15/16 22:57 Urine Appearance Clear (Clear) 10/15/16 22:57 Urine pH 6.0 (4.5-8.0) 10/15/16 22:57 Ur Specific [place] 1.009 (1.001-1.035) 10/15/16 22:57 Urine Protein >=500 MG/DL 10/15/16 22:57 Urine Glucose (UA) Negative mg/dL (Negative) 10/15/16 22:57 Urine Ketones Negative mg/dL (Negative) 10/15/16 22:57 Urine Blood Negative mg/dL (Negative) 10/15/16 22:57 Urine Nitrate Negative (Negative) 10/15/16 22:57 Urine Bilirubin Negative mg/dL (Negative) 10/15/16 22:57 Urine Urobilinogen < 2.0 EU/DL (0.2-1.0) H 10/15/16 22:57 Urine Leukocytes Negative [place]/ul (Negative) 10/15/16 22:57 Urine RBC 1 /HPF (0-4) 10/15/16 22:57 Urine WBC <1 /HPF (0-6) 10/15/16 22:57 Ur Squamous Epith Cells Occasional /HPF (0-10) 10/15/16 22:57 Hyaline Casts 1 /LPF (0-3) 10/15/16 22:57 Urine Mucus Occasional /LPF (Occasional) 10/15/16 22:57 Ur Culture Indicated? Not indicated 10/15/16 22:57 Urine Opiates Screen Positive (Negative) H 10/15/16 22:57 Ur Barbiturates Screen Negative (Negative) 10/15/16 22:57 Ur Phencyclidine Scrn Negative (Negative) 10/15/16 22:57 U Amphetamine/Methamph Negative (Negative) 10/15/16 22:57 U Benzodiazepines Scrn Negative (Negative) 10/15/16 22:57 U Cocaine Metab Screen Positive (Negative) H 10/15/16 22:57 U Cannabinoids Screen Positive (Negative) H 10/15/16 22:57 - Diagnostic Findings Procedure: CT Abdomen and Pelvis: image reviewed by me (Stranding and distortion of the fat along the pancreatic tail suggest pancreatitis. Diverticular disease is present. Nonobstructing renal stones present bilaterally.) Disposition Clinical Impression: Leukocytosis, Polysubstance abuse, Cocaine use, Malignant hypertension, Pancreatitis Case discussed with: patient, patient's family Disposition: Still a Patient Condition: Stable Time of Disposition: 23:07
[2016-10-15 22:05] LABS: Blood Urea Nitrogen 20 MG/DL (7-18); Calcium 9.3 MG/DL (8.5-10.1); Glucose 131 MG/DL (74-106); Magnesium 2.4 MG/DL (1.8-2.4); Osmolality,Calculated 270.4 MOS/KG (273-304); Sodium 133 MMOL/L (136-145)
[2016-10-15 22:18] LABS: Troponin I Only 0.153 NG/ML (0.00-0.045)
[2016-10-15 22:19] LABS: Potassium 2.3 MMOL/L (3.5-5.1)
[2016-10-15] MEDS ORDERED: POTASSIUM CHLORIDE 20 MEQ TABLET PO STA (22:21)
[2016-10-15] MEDS ORDERED: KETOROLAC 30 MG/1 ML VIAL IV STA (22:21)
[2016-10-15] MEDS ORDERED: KETOROLAC 30 MG/1 ML VIAL ONE (22:22)
[2016-10-15] MEDS ORDERED: POTASSIUM CHLORIDE 20 MEQ TABLET PO ONE (22:22)
[2016-10-15] MEDS ORDERED: SODIUM CHLORIDE 0.9% 1,000 ML IV STA (23:10)
[2016-10-15 23:17] LABS: Apearance,Urine CLEAR (Clear); Bilirubin,Urine Negative (Negative); Blood, Urine Negative (Negative); Glucose,Urine (UA) Negative (Negative); Hyaline Casts,Urine 1 /LPF (0-3); Ketones,Urine Negative (Negative); Mucus,Urine Occasional /LPF (Occasional); Nitrite,Urine Negative (Negative); Protein,Urine >=500 MG/DL; RBC,Urine 1 /HPF (0-4); Squamous Epithelial Cell,Urine Occasional /HPF (0-10); Urine Color Straw (Yellow); Urine Specific Gravity 1.009 (1.001-1.035); Urine Urobilinogen < 2.0 EU/DL (0.2-1.0); WBC,Urine <1 /HPF (0-6)
[2016-10-15 23:19] LABS: Barbiturates Screen,Urine Negative (Negative); Benzodiazepines Screen,Urine Negative (Negative); Cannabinoid Screen,Urine Positive (Negative); Opiate Screen,Urine Positive (Negative); Phencyclidine Screen,Urine Negative (Negative)
[2016-10-16] MEDS ORDERED: LORazepam 2 MG/1 ML VIAL ONE (00:02)
[2016-10-16] MEDS ORDERED: LORazepam 2 MG/1 ML VIAL IV STA (00:06)
[2016-10-16] MEDS ORDERED: ACETAMINOPHEN 325 MG TABLET PO PRN (00:55)
[2016-10-16] MEDS ORDERED: MORPHINE 2 MG/1 ML SYRINGE IV PRN (00:55)
[2016-10-16] MEDS: LACTATED RINGERS 1,000 ML IV SCH ×3 (01:54→08:55)
[2016-10-16] MEDS: POTASSIUM CHLORIDE RIDER 10 MEQ in PREMIX 1 EACH IV SCH ×5 (01:59→04:52)
[2016-10-16] MEDS: HEPARIN 5,000 UNIT/1 ML VIAL SUBCUT SCH ×3 (02:02→17:29)
--- NOTE | 2016-10-16 03:44 | Hospitalist History & Physical ---
Assessment and Plan (1) Pancreatitis Status: Acute Assessment and plan: Patient with multiple bouts of pancreatitis, this 1 seems to have been smoldering for a while and now acutely exacerbated Lipase is indeed elevated with stranding on CT scan Aggressive IV fluids with lactated Ringer's No indication for antibiotics at this time N.p.o. for bowel rest Current Visit: Yes Qualifiers: Chronicity: acute Pancreatitis type: idiopathic (2) Hypokalemia Status: Acute Assessment and plan: Replacement started at [place], continue with IV potassium Current Visit: Yes (3) Uncontrolled hypertension Status: Acute Assessment and plan: Patient has not been taking blood pressure medicines for a couple weeks and then took some unknown hypertension medicines between ER visits tonight Resume some historical hypertension meds tomorrow, as needed hydralazine IV for spikes in blood pressure No need to be too aggressive as he is chronically uncontrolled and asymptomatic Likely secondary to cocaine use, spare beta blockers for now Current Visit: No (4) Cocaine use Status: Acute Assessment and plan: Patient denies but has multiple positive tests Current Visit: Yes (5) Acute kidney injury Status: Acute Assessment and plan: BUN and creatinine are worse than baseline chronic kidney disease likely secondary to above conditions Aggressive IV fluids and trend Large proteinuria on UA, check protein creatinine ratio Current Visit: No (6) Elevated troponin Status: Acute Assessment and plan: Troponin elevated yet not even as high as the last time he was admitted with accelerated hypertension In the setting of CKD does not represent acute coronary syndrome Current Visit: No History of Present Illness Chief complaint: Abdominal pain History of present illness: Mr. Munson is a 41 year old male with medical history that includes pancreatitis, chronic kidney disease stage III, hypertension, polysubstance abuse including cocaine that presented with a chief complaint of abdominal pain. Onset gradual. Duration exacerbated 1 week with a total 4 months duration. Quality is cramping in the middle of his stomach and radiating into his left rib. Made worse about 20 minutes after eating meals. Also associated with daily vomiting. Pain was unbearable when he arrived at the emergency department but was told somewhat by the Toradol although it did not kulwinder symptoms for a long. Patient was seen by primary care provider and was directed to the [facility] for hypertension. He had not taken his blood pressure medicines for couple of weeks and notes that her normal blood pressure for him would be over 200 systolic. He denied symptoms related to the hypertension. He left [facility] to come to [place] for further care because he did not want to pay for the ambulance for transport. They refilled his blood pressure medications and he took them before arriving to the [place] emergency department. He is not able to recall what specifically those medications are. He spent much of our discussion talking about pain medicines and how doctors generally do not want to control his pain. He endorses recent marijuana use but denies cocaine use. Review of records show multiple positive urine drug screens for cocaine including this presentation at [facility]. I have reviewed the workup at both facilities including lab and imaging data. I discussed his case with the emergency department providers. Home Medications Medication Instructions Recorded Confirmed Type Atorvastatin [Lipitor] 40 mg PO DAILY #30 tablet 07/04/16 10/15/16 Rx Carvedilol [Coreg] 12.5 mg PO BID #60 tablet 07/04/16 10/15/16 Rx Lisinopril/Hctz 10-12.5 [Prinzide 1 tablet PO DAILY #30 tablet 07/04/16 Rx 10-12.5] amLODIPine [Norvasc] 10 mg PO DAILY #30 tablet 07/04/16 10/15/16 Rx Allergies Allergy/AdvReac Type Severity Reaction Status Date / Time No Known Drug Allergies AdvReac Verified 06/27/16 09:15 Medical,Surgical,& Family Hx - Medical History Cardio: History of: Hypertension No history of: Cardiac Dysrhythmia, CAD, [place] Psychological: History of: Psychiatric/Substance Abuse Tx (MARIQUANA,COCAINE) HEENT: No history of: Ear Problem, Eye Problem, Dental Problems, Glaucoma, Oral Cancer, HEENT Problems Endocrine: History of: Dyslipidemia No history of: Adrenal Disease, Diabetes Mellitus (IDDM), Diabetes Mellitus ( NIDDM), Thyroid Disorder, Endocrine Cancer, Endocrine Problems Renal: History of: Renal Problems (RECURRENT LEFT FLANK PAIN) No history of: Renal (Kidney) Cancer, Dialysis, Renal Failure Genitourinary: History of: Kidney Stones, Prostate Problems (BPH), Recurring Urinary Tract Infections, Problems (recurent protatitis) No history of: Bladder Problem, Genitourinary Cancer Gastrointestinal: History of: Pancreatitis (intermittently since jun 2016 (3rd adm to hospital)) Musculoskeletal: History of: Musculoskeletal Problems (HX FRACTURE FX 5TH RIGHT HAND) No history of: Amputation Reproductive: Reports: Sexually Transmitted Disease (Gonorrhea) - Surgical History Thoracic Surgeries: Patient denies;: Kidney (Renal Surgery), Lithotripsy, Nephrectomy, Organ Transplant, Lobectomy Neurologic Surgeries: Patient denies: Neurologic Surgery HEENT Surgeries: Patient denies: Eye Surgery, Thyroid Surgery, Tonsilectomy & Adenoidectomy Abdominal Surgeries: Patient denies: Abdominal Surgery, Appendectomy, Cholecystectomy, Colonoscopy , Gastric Bypass Surgery, EGD, Hernia Repair Reproductive Surgeries: Patient denies;: Cystoscopy, Genitourinary Surgery, Prostate Surgery Orthopedic Surgeries: Surgical HX of;: Orthopedic Surgery (5TH DIGIT RIGHT HAND) Patient denies;: Implanted Devices, Spinal Surgery, Total Hip Replacement, Total Knee Replacement - Family History Family History: Reports;: Family Anesthesia Reaction, Family Cancer (Father( pancreas)), Family Hypertension (Father,PAT AUNT,PAT GM), Family Psychiatric Problems (DELAYED(DID NOT TALK UNTIL AGE 6) NOW WNL), Family Stroke (MAT GF), Additional Family History (MAT GM(BLEEDING ULCERS,RA)) Denies;: Family Diabetes, Family Heart Disease, Family Hematology - Social History Smoking Status: Current every day smoker Type of Drug Use: Cocaine, Marijuana Marital Status: Lives With:: Spouse Functional capacity: independent ambulation Review of systems: - Constitutional Constitutional: Absent: chills, fatigue, fever(s), night sweats, weight loss - EENT Eyes: Absent: blurry vision Ears: Absent: decreased hearing, ear pain Nose, mouth and throat: Absent: nasal congestion, sore throat - Cardiovascular Cardiovascular: Absent: chest pain at rest, chest pain with activity, dyspnea on exertion, edema, orthopnea, palpitations - Respiratory Respiratory: Absent: cough, dyspnea, hemoptysis - Gastrointestinal Gastrointestinal: Present: Abdominal pain, nausea, vomiting, intermittent constipation and diarrhea absent: hematemesis, hematochezia, melena - Genitourinary Genitourinary: Absent: difficulty urinating, dysuria, hematuria - Musculoskeletal Musculoskeletal: Absent: arthralgias, joint swelling, myalgias - Neurological Neurological: Absent: confusion, dizziness, focal weakness, headache(s), numbness, paresthesias, syncope - Psychiatric Psychiatric: Absent: anxiety, depression - Endocrine Endocrine: Absent: cold intolerance, heat intolerance, polydipsia, polyuria - Hematologic/Lymphatic Hematologic/Lymphatic: Absent: easy bleeding, easy bruising, lymphadenopathy Exam - Constitutional Vitals: Period Temp Pulse Resp BP Sys/Schrader Pulse Ox Last 24 Hr 86 16 125/85 98 General appearance: over weight, other (Young -[place] male lying in stretcher frustrated and cooperative) Exam: - Eye Eye exam: Present: EOMI. Absent: conjunctival injection, scleral icterus Pupils: Present: MONIE - ENT ENT exam: Present: normal external ear exam, normal oropharynx - Expanded ENT Exam Mouth exam: Present: Dry - Neck Neck exam: Present: normal inspection. Absent: lymphadenopathy, thyromegaly - Respiratory Respiratory exam: Present: clear to auscultation bilaterally. Absent: accessory muscle use, rales, rhonchi, wheezes - Cardiovascular Cardiovascular exam: Present: regular rate and rhythm. Absent: diastolic murmur , systolic murmur - Expanded Cardiovascular Exam Peripheral pulses: 2+: posterior tibialis (L), posterior tibialis (R) - GI/Abdominal GI/Abdominal exam: Present: normal bowel sounds, soft. Absent: distended, hyperactive bowel sounds, hypoactive bowel sounds, organomegaly, tenderness, rebound - Extremities Exam Extremities exam: Absent: edema - Neurological Exam Neurological exam: Present: alert, oriented X3, CN II-XII intact. Absent: motor sensory deficit - Psychiatric Psychiatric exam: Present: normal affect - Skin Skin exam: Present: warm, dry. Absent: diaphoretic, rash Results - Labs CBC & BMP: 10/15/16 21:35 10/15/16 21:35 - Diagnostic Findings Procedure: CT Abdomen and Pelvis: report reviewed by me
[2016-10-16 06:19] LABS: PT Patient Result 10.7 SECS
--- NOTE | 2016-10-16 06:45 | CT Report ---
Referring physician: Shalom Sepulveda EXAM: CT abdomen and pelvis without contrast DATE: October 15, 2016 COMPARISON: CT abdomen and pelvis July 01, 2016 REASON: Lower abdominal pain Preliminary report was provided by [facility]. TECHNIQUE: Axial images of the abdomen and pelvis were obtained without the use of contrast. Coronal and sagittal reformatted images were also provided. Total DLP is 453.4 mGy*cm. FINDINGS: Lower thorax: There is minimal atelectasis at the left lung base and a minimal hiatal hernia. ABDOMEN: Liver: Unremarkable. Gallbladder and bile ducts: The gallbladder is unremarkable. No biliary duct dilatation is present. Pancreas: There is decreased fat stranding/inflammation at the tail of the pancreas in this patient with probable previous pancreatitis. Spleen: Unremarkable. Adrenals: Unremarkable. Kidneys and ureters: No hydronephrosis is is present, and no ureteral stones are seen. There are again bilateral nonobstructing renal calculi. The stone burden appears stable. The largest stone is located at the lower pole of the right kidney and measures 0.55 cm. PELVIS: Bladder: Unremarkable. Reproductive: Unremarkable as visualized. ABDOMEN AND PELVIS: Bowel: There is no evidence of bowel obstruction. The colonic wall is mildly thickened at the splenic flexure, adjacent to the pancreatic tail. However, the wall thickening in this region has improved. This wall thickening is likely related to pancreatitis since it abuts the pancreatic tail. Other considerations include focal colitis, but this is thought less likely. Multiple colonic diverticula are present, but there is no evidence of diverticulitis at the remaining colon. Appendix: Unremarkable. Vasculature: The abdominal aorta is normal in size. There is minimal scattered calcified plaque at the arteries. Peritoneum: No free air is seen. There is trace free fluid within the left paracolic gutter. Lymph nodes: No suspicious adenopathy is seen. Abdominal/pelvic wall: There is minimal fat-containing umbilical hernia. Bones: There is mild degenerative change at the lumbar spine. No acute osseous process is identified. IMPRESSION: 1. There is decreased fat stranding/inflammation at the pancreatic tail. This likely represents improving pancreatitis. 2. Focal wall thickening is seen at the splenic flexure where it abuts the pancreatic tail. This has improved and is likely related to pancreatitis. Other considerations include focal colitis, but this is thought less likely. 3. Bilateral nonobstructing renal calculi. 4. Colonic diverticulosis without evidence diverticulitis. The CT exam was performed using one or more of the following dose reduction techniques: Automated exposure control and adjustment of the mA and/or kV according to patient size. PROCEDURE INTERPRETED AT [facility] DEPARTMENT OF RADIOLOGY Final Report Signed by: Dr. Fidel Hudson
[2016-10-16 06:53] LABS: Calcium 8.6 MG/DL (8.5-10.1); Magnesium 2.3 MG/DL (1.8-2.4); Osmolality,Calculated 270.1 MOS/KG (273-304); Potassium 2.6 MMOL/L (3.5-5.1)
[2016-10-16 07:23] LABS: Triglycerides 119 MG/DL (2-150)
--- NOTE | 2016-10-16 08:35 | Event Note ---
History and physical was done earlier this morning by the fruit express agent. The patient reports no prior episodes of pancreatitis before the episode back in June. Etiology was not ever determined with certainty. He had been given a diuretic. He had noted some intermittent alcohol use, but not large amounts on a daily basis. There is no family history of pancreatitis. There is no history of gallstones. He also has been hypertensive, and has not been able to afford his medications, until his insurance was resumed recently. He is not aware of any kidney disease except for kidney stones. His main complaint today is that his pain is not relieved by morphine. He apparently goes to work every day with some abdominal pain, which she says has persisted since his episode of pancreatitis earlier this year. In fact, he reports having to buy Lortab from friends because he cannot get any pain medicines. He says that he will usually take 2 or 3 tablets per week, and is able to get by with that. I reviewed his chart from his last few admissions. He apparently had findings suggestive of pancreatitis with a possible phlegmon back in June. He also had proteinuria at that time. We are going ahead and quantitating that during this admission. I have revised his opioids, and we will continue his antihypertensives. We will continue GI rest. His bowels have been moving, and he has been making urine. His examination is notable for some left sided tenderness. There is no evidence of any peritoneal irritation. This note was completed using [employer] voice recognition software. There may be skein bander errors as a result.
[2016-10-16] MEDS: SODIUM CHLORIDE 0.9% 1,000 ML IV SCH ×2 (09:25→17:37)
[2016-10-16] MEDS: HYDROmorphone 2 MG/1 ML VIAL IV PRN ×4 (09:31→23:17)
[2016-10-16] MEDS: LISINOPRIL 10 MG TABLET PO SCH (09:35)
[2016-10-16] MEDS: POTASSIUM CHLORIDE 20 MEQ TABLET PO SCH ×2 (09:35→21:49)
[2016-10-16] MEDS: amLODIPine 10 MG TABLET PO SCH (09:35)
[2016-10-16] MEDS: ATORVASTATIN 40 MG TABLET PO SCH (09:35)
[2016-10-16] MEDS: ONDANSETRON 4 MG/2 ML VIAL IV PRN ×3 (09:46→18:47)
[2016-10-17] MEDS: HEPARIN 5,000 UNIT/1 ML VIAL SUBCUT SCH ×3 (01:43→18:05)
[2016-10-17] MEDS: SODIUM CHLORIDE 0.9% 1,000 ML IV SCH ×3 (01:46→22:22)
[2016-10-17] MEDS: HYDROmorphone 2 MG/1 ML VIAL IV PRN ×5 (05:10→23:16)
[2016-10-17] MEDS: hydrALAZINE 20 MG/1 ML VIAL IV PRN ×5 (05:15→19:25)
[2016-10-17] MEDS: amLODIPine 10 MG TABLET PO SCH ×2 (06:53→09:46)
[2016-10-17] MEDS: ATORVASTATIN 40 MG TABLET PO SCH ×2 (06:53→09:47)
[2016-10-17] MEDS: LISINOPRIL 10 MG TABLET PO SCH ×2 (06:53→09:46)
[2016-10-17 07:34] LABS: Calcium 8.6 MG/DL (8.5-10.1); Osmolality,Calculated 275.5 MOS/KG (273-304); Potassium 3.1 MMOL/L (3.5-5.1)
--- NOTE | 2016-10-17 08:40 | Hospitalist Progress Note ---
Assessment and Plan (1) Pancreatitis Status: Acute Assessment and plan: Impression: 1. Acute pancreatitis, improving 2. Hypertension 3. Possible chronic kidney disease with proteinuria; stage not known Plan: Advance diet. We will try to get the spot urine collected. He does not need a 24-hour urine. Will consider discharge later today or in the morning, depending on how well he tolerates his diet being advanced. This note was completed using [employer] voice recognition software. There may be bioinformatics analyst errors as a result. Current Visit: Yes Qualifiers: Chronicity: acute Pancreatitis type: idiopathic Hospitalist: Subjective Interval history: Follow-up pancreatitis and hypertension. The patient says that his abdomen feels better. He has had a return of his appetite. He would like to try some liquids. He says that he is very worried about not being able to have some pain medicine for as needed use when he goes home. He had evidence of acute pancreatitis both radiographically and serologically when he presented for admission this time. We discussed the overuse of pain medicine, and how that could lead to addiction with abdominal pain as a symptom of withdrawal. He reports that when he had used opioids in the past, he had only used 2 or 3 pills per week. He is anxious to return to work. He appears to have had an episode of acute pancreatitis. We discussed the expected course of the illness which is that it should improve with no need for chronic opioids. He expressed understanding. We will advance his diet, and plan on discharge later this afternoon or in the morning, depending on how well he tolerates food. For some reason, his spot urine was not collected. It looks like the staff is trying to perform a 24-hour urine collection. This was not ordered. Exam - Constitutional Vitals: Period Temp Pulse Resp BP Sys/Schrader Pulse Ox Last 24 Hr 97.8 F-99.4 F 20-89 18-20 159-194/91-116 97-100 Vital signs are noted above. Heart is regular with no murmur or gallop. Lungs are clear with no rales or wheezes. He has some minimal abdominal tenderness; this is much improved from yesterday. He is awake and alert. Results - Labs CBC & BMP: 10/15/16 21:35 10/17/16 05:13 Lab Results: I have reviewed the past 24 hour labs (Potassium is trending up. Creatinine is trending down.)
[2016-10-17] MEDS ORDERED: POTASSIUM CHLORIDE 20 MEQ TABLET PO ONE (08:47)
[2016-10-17 16:59] LABS: Protein/Creatinine Ratio,Urine 3.2 RATIO
[2016-10-18] MEDS: hydrALAZINE 20 MG/1 ML VIAL IV PRN (00:50)
[2016-10-18] MEDS: HEPARIN 5,000 UNIT/1 ML VIAL SUBCUT SCH ×2 (00:53→20:26)
[2016-10-18] MEDS: HYDROmorphone 2 MG/1 ML VIAL IV PRN (05:43)
[2016-10-18] MEDS: SODIUM CHLORIDE 0.9% 1,000 ML IV SCH (05:48)
--- NOTE | 2016-10-18 07:11 | Physician Query Form ---
CLICK EDIT DOCUMENT TO SELECT QUERY ANSWER --> OK --> SIGN Juju Sepulveda RN, CCDS Certified Clinical Business Liaison Officer W) [phone] (f) [phone] [email or web address] PROVIDERS: Make your selection(s) from the choices in EACH section by typing an "x" and enter comments in the comment section. Please use your independent medical judgment in providing your response. This request does not imply that any particular answer is desired or expected. CLINICAL INDICATORS: (Providers should not edit this section) The medical record indicates that the patient was admitted with Pancreatitis, Hypertension, acute renal failure, BP of 186/133 and the patient was treated with Apresoline IV. Note: Hypertensive crises can present as hypertensive urgency or hypertensive emergency. Clarify which, if any of the following, is a more accurate diagnosis reflecting the type and acuity of the documented hypertension: TYPE: (x ) Hypertensive Urgency ( ) Hypertensive Emergency ( ) Uncontrolled chronic hypertension at baseline ( ) Other, please specify: ( ) Clinically unable to determine Criteria Source - Up to Date (This topic last updated: Aug 13, 2015) HYPERTENSIVE URGENCY: Severe hypertension (usually a diastolic blood pressure above 120 mmHg) in asymptomatic patients is referred to as hypertensive urgency. There is no proven benefit from rapid reduction in blood pressure in asymptomatic patients who have no evidence of acute end-organ damage and are at little short-term risk. HYPERTENSIVE EMERGENCY: Severe hypertension (usually a diastolic blood pressure above 120 mmHg) with evidence of acute end-organ damage is defined as a hypertensive emergency. A hypertensive emergency can be life threatening and requires immediate treatment, usually with parenteral medications in a monitored setting. COMMENTS: Use of terms such as suspected, likely, or probable (associated with a specific diagnosis that is being evaluated, monitored, or treated as if it exists) are acceptable and can be restated in the discharge summary if not ruled out. MTDD
[2016-10-18 08:27] LABS: Basophils # 0.1 10*3/uL (0.0-0.2); Basophils % 0.6 % (0.0-0.8); Eosinophils # 0.1 10*3/uL (0.0-0.87); Eosinophils % 0.6 % (0.00-10.9); Hematocrit 46.2 VOL% (42.0-52.0); Immature Granulocytes % 0.5 %; Immature Granulocytes Absolute 0.07 #; Lymphocytes # 1.4 10*3/uL (1.4-4.0); Lymphocytes % 11.1 % (21.2-54.2); Mean Corpuscular HGB Conc 32.5 GM/DL (32-36); Mean Corpuscular Hemoglobin 27 PG (27-34); Mean Corpuscular Volume 82.4 FL (87-102); Mean Platelet Volume 11.1 FL (9.6-12.0); Monocytes % 7.4 % (1.7-12.7); Neutrophils # 10.3 10*3/uL (1.4-7.4); Neutrophils % 79.8 % (38.7-73.9); Platelet Count 230 T/CUMM (130-400); Red Blood Count 5.61 MC/CUMM (3.8-5.5); Red Cell Distribution Width 16.6 % (9.3-17.3); White Blood Count 12.9 T/CUMM (4-12)
[2016-10-18 08:55] LABS: Calcium 9.1 MG/DL (8.5-10.1); Osmolality,Calculated 274.7 MOS/KG (273-304); Potassium 3.1 MMOL/L (3.5-5.1)
--- NOTE | 2016-10-18 10:15 | Discharge Summary ---
Hospital Course - Hospital Course Hospital Course: Mr Munson was transferred from an outside hospital for evaluation of pancreatitis. CT of his abdomen and pelvis in the ER revealed evidence of pancreatitis. In the ER amylase was noted to be 422 and lipase 2162. Troponin was 0.153. He was severely hypokalemic. He also had mild acute kidney injury. Triglycerides were noted to be normal. Of note his urine drug screen was positive for opiates, cocaine and cannabinoids. Patient was initiated on conservative treatment to include bowel rest and IV fluids. His Coreg was held given his positive cocaine level. Patient remained hospitalized on this treatment and improved slowly. On my first visit with the patient he was upset and adamant that he was leaving AMA due to perceived issues with his treatment. I had told him that I wanted both cardiology and gastroenterology to evaluate him but he refused. He also complained of having had blood in his ejaculate and I offered urology to see him while hospitalized however the patient stated he will follow-up with all 3 services as an outpatient. Repeat labs revealed his troponins had normalized. Lipase was 2500. Given that the patient was adamant about leaving AMA I instructed the patient to abstain from all recreational and illicit drugs. I also discontinued his lisinopril hydrochlorothiazide combination pill and will continue lisinopril only due to the possibility that hydrochlorothiazide may be causing pancreatitis. Patient signed out AMA. - Time spent with patient Time with patient DS: Greater than 30 minutes Discharge Plan - Discharge Data Disposition: Disch To Home/Self Care Condition at Discharge: Stable Discharge Diet: advance to your usual diet Activity: resume usual activities as tolerated Hygiene: no restrictions - Discharge Medications New RX: Lisinopril [Prinivil] 10 mg PO DAILY #30 tablet Continue RX: Atorvastatin [Lipitor] 40 mg PO DAILY #30 tablet RX: Carvedilol [Coreg] 12.5 mg PO BID #60 tablet RX: Ciprofloxacin HCl [Ciprofloxacin Tab] 500 mg PO BID RX: amLODIPine [Norvasc] 10 mg PO DAILY #30 tablet Discontinued RX: Lisinopril/Hctz 10-12.5 [Prinzide 10-12.5] 1 tablet PO DAILY #30 tablet - Follow Up or Referral - Forms/Instructions Exam - Constitutional Vitals: Period Temp Pulse Resp BP Sys/Schrader Pulse Ox Last 24 Hr 97 F-99.3 F 96-112 18-20 164-206/95-131 98-100 General appearance: normal weight, no acute distress - Head Head exam: Present: normal inspection, normocephalic - Eye Eye exam: Present: EOMI Pupils: Present: MONIE - ENT ENT exam: Present: normal exam - Neck Neck exam: Present: normal inspection - Respiratory Respiratory exam: Present: clear to auscultation bilaterally - Cardiovascular Cardiovascular exam: Present: regular rate and rhythm. Absent: bradycardia, irregular rhythm, systolic murmur - GI/Abdominal GI/Abdominal exam: Present: normal bowel sounds, tenderness. Absent: ascites, distended, hypoactive bowel sounds, hernia - Extremities Exam Extremities exam: Present: normal inspection Discharge Results Labs on day of discharge: Labs from last 24 hours 10/18/16 10/18/16 10/18/16 07:46 07:46 07:46 WBC RBC Hgb Hct MCV MCH MCHC RDW Plt Count MPV Neut % (Auto) Lymph % (Auto) [place] % (Auto) Eos % (Auto) Baso % (Auto) Neut # (Auto) Lymph # (Auto) [place] # (Auto) Eos # (Auto) Baso # (Auto) Immature Gran % Nucleated RBC % Immature Gran # Nucleated RBCs # Sodium Potassium Chloride Carbon Dioxide Anion Gap BUN Creatinine GFR Calculation BUN/Creatinine Ratio Glucose POC Glucose Hemoglobin A1c 5.7 Calculated Osmolality Calcium Troponin I 0.045 Lipase 2574.0 H D Protein/Creatinin Ratio 10/18/16 10/18/16 10/18/16 07:46 07:46 06:12 WBC 12.9 H D RBC 5.61 H Hgb 15.0 Hct 46.2 MCV 82.4 L MCH 27 MCHC 32.5 RDW 16.6 Plt Count 230 MPV 11.1 Neut % (Auto) 79.8 H Lymph % (Auto) 11.1 L [place] % (Auto) 7.4 Eos % (Auto) 0.6 Baso % (Auto) 0.6 Neut # (Auto) 10.3 H Lymph # (Auto) 1.4 [place] # (Auto) 1.0 H Eos # (Auto) 0.1 Baso # (Auto) 0.1 Immature Gran % 0.5 Nucleated RBC % 0.0 Immature Gran # 0.07 Nucleated RBCs # 0.00 Sodium 138 Potassium 3.1 L Chloride 99 Carbon Dioxide 29 Anion Gap 13.1 BUN 11 Creatinine 1.50 H GFR Calculation 78 BUN/Creatinine Ratio 7.00 Glucose 109 H POC Glucose 100 Hemoglobin A1c Calculated Osmolality 274.7 Calcium 9.1 Troponin I Lipase Protein/Creatinin Ratio 10/18/16 10/17/16 10/17/16 00:31 17:52 16:10 WBC RBC Hgb Hct MCV MCH MCHC RDW Plt Count MPV Neut % (Auto) Lymph % (Auto) [place] % (Auto) Eos % (Auto) Baso % (Auto) Neut # (Auto) Lymph # (Auto) [place] # (Auto) Eos # (Auto) Baso # (Auto) Immature Gran % Nucleated RBC % Immature Gran # Nucleated RBCs # Sodium Potassium Chloride Carbon Dioxide Anion Gap BUN Creatinine GFR Calculation BUN/Creatinine Ratio Glucose POC Glucose 108 H 144 H Hemoglobin A1c Calculated Osmolality Calcium Troponin I Lipase Protein/Creatinin Ratio 3.2 DS: Provider Date of admission: 10/15/16 23:59 Primary care physician: . No PCP Attending physician on admission: Peterson Mercado MD Consults: 10/16/16 04:17 Consult to Dietitian [CONS] Routine Reason for Dietitian: Other 10/18/16 07:37 Consult to Physician [CONS] Routine Comment: elevated troponin Consulting Provider: Cardiology - [facility] Consult to Specialist Group: Cardiology When should Consulting Provider be notified: Now Person Notified: reji Date Notified: 10/18/16 Time Notified: 08:29 10/18/16 09:03 Consult to Physician [CONS] Routine Comment: pancreatitis Consulting Provider: Sumeet Guerrero Consult to Specialist Group: Gastroenterology When should Consulting Provider be notified: Now Person Notified: ROMAIN Date Notified: 10/18/16 Time Notified: 09:24 10/18/16 09:16 Consult to Physician [CONS] Routine Comment: blood in sperm Consulting Provider: Shalom Dior Consult to Specialist Group: Urology When should Consulting Provider be notified: Now Person Notified: JAZZMINE Date Notified: 10/18/16 Time Notified: 09:28 Discharging clinician: Annabel Parada MD Expected date of discharge: 10/18/16
[2016-10-18 15:43] VITALS: BP 207/135
[2016-10-18] MEDS: amLODIPine 10 MG TABLET PO SCH (20:26)
[2016-10-18] MEDS: ATORVASTATIN 40 MG TABLET PO SCH (20:26)
[2016-10-18] MEDS: LISINOPRIL 10 MG TABLET PO SCH (20:27)
== END 2016-10-18 10:50 | disposition left against medical advice (07) | DRG 439 ==
LOC: N.ED 20:34 → N.EDINP 23:59 → SUATTDRO 23:59 → N.2E 10-16 00:18
PROVIDERS: ADMIT Student in an Organized Health Care Education/Training Program; ATTEND Internal Medicine

== ENCOUNTER 2018-03-09 15:01 | Inpatient (IN) ==
[2018-03-09] MEDS ORDERED: ACETAMINOPHEN 325 MG TABLET PO PRN (16:52)
[2018-03-09] MEDS ORDERED: ALBUTEROL 2.5 MG/3 ML NEB RESP TX PRN (16:52)
[2018-03-09] MEDS ORDERED: DOXAZOSIN 2 MG TABLET PO SCH (17:28)
[2018-03-09] MEDS: NICOTINE 21 MG/24 HR PATCH TRANSDERM SCH (17:38)
[2018-03-09] MEDS: POTASSIUM CHLORIDE 20 MEQ TABLET PO SCH ×2 (17:39→21:03)
[2018-03-09] MEDS: niCARdipine INJ 25 MG in SODIUM CHLORIDE 0.9% 240 ML IV PRN ×2 (17:40→20:20)
[2018-03-09 17:44] LABS: Basophils # 0.1 10*3/uL (0.0-0.2); Basophils % 0.6 % (0.0-0.8); Eosinophils # 0.2 10*3/uL (0.0-0.87); Hematocrit 43.9 VOL% (42.0-52.0); Hemoglobin 14.6 GM/DL (14.0-18.0); Immature Granulocytes % 0.6 %; Immature Granulocytes Absolute 0.09 #; Lymphocytes % 13.2 % (21.2-54.2); Mean Corpuscular HGB Conc 33.3 GM/DL (32-36); Mean Corpuscular Hemoglobin 28 PG (27-34); Mean Corpuscular Volume 82.8 FL (87-102); Mean Platelet Volume 12.5 FL (9.6-12.0); Monocytes # 1.3 10*3/uL (0.11-0.8); Monocytes % 8.1 % (1.7-12.7); Neutrophils # 11.7 10*3/uL (1.4-7.4); Neutrophils % 76.5 % (38.7-73.9); Platelet Count 113 T/CUMM (130-400); Red Cell Distribution Width 14.7 % (9.3-17.3); White Blood Count 15.4 T/CUMM (4-12)
[2018-03-09 18:16] LABS: Apearance,Urine CLEAR (Clear); Bacteria,Urine Occasional /HPF (Few); Bilirubin,Urine Negative (Negative); Blood, Urine Large mg/dL (Negative); Glucose,Urine (UA) 50 mg/dL (Negative); Ketones,Urine Negative (Negative); Nitrite,Urine Negative (Negative); Protein,Urine >=500 MG/DL; RBC,Urine 269 /HPF (0-4); Squamous Epithelial Cell,Urine Occasional /HPF (0-10); Urine Color Yellow (Yellow); Urine Specific Gravity 1.008 (1.001-1.035); Urine Urobilinogen < 2.0 EU/DL (0.2-1.0); WBC,Urine 5 /HPF (0-6)
[2018-03-09 18:17] LABS: Albumin 3.5 G/DL (3.4-5.0); Bilirubin,Total 0.4 MG/DL (0.2-1.0); Calcium 8.6 MG/DL (8.5-10.1); Osmolality,Calculated 286.8 MOS/KG (273-304); Potassium 2.9 MMOL/L (3.5-5.1); Total Protein 7.1 G/DL (6.4-8.3)
[2018-03-09] MEDS: DOXAZOSIN 1 MG TABLET PO SCH (18:54)
[2018-03-09] MEDS: CARVEDILOL 12.5 MG TABLET PO SCH (20:08)
[2018-03-09] MEDS: ALUMINUM/MAGNES/SIMETH MAX STR 30 ML UDCUP PO PRN (20:09)
[2018-03-09] MEDS ORDERED: niCARdipine 25 MG/10 ML VIAL IV ONE (20:11)
[2018-03-09] MEDS ORDERED: ONDANSETRON 4 MG/2 ML VIAL IM PRN (22:37)
[2018-03-09] MEDS ORDERED: PROMETHAZINE 25 MG/1 ML VIAL IM PRN (22:38)
[2018-03-10] MEDS: niCARdipine INJ 25 MG in SODIUM CHLORIDE 0.9% 240 ML IV PRN ×5 (00:09→10:32)
[2018-03-10] MEDS: POTASSIUM CHLORIDE 20 MEQ TABLET PO SCH ×4 (03:03→17:13)
[2018-03-10 03:22] LABS: Basophils # 0.1 10*3/uL (0.0-0.2); Basophils % 0.4 % (0.0-0.8); Eosinophils # 0.1 10*3/uL (0.0-0.87); Eosinophils % 0.7 % (0.00-10.9); Hematocrit 42.6 VOL% (42.0-52.0); Hemoglobin 13.9 GM/DL (14.0-18.0); Immature Granulocytes % 0.7 %; Lymphocytes # 1.7 10*3/uL (1.4-4.0); Lymphocytes % 12.6 % (21.2-54.2); Mean Corpuscular HGB Conc 32.6 GM/DL (32-36); Mean Corpuscular Hemoglobin 28 PG (27-34); Mean Corpuscular Volume 84.9 FL (87-102); Mean Platelet Volume 12.6 FL (9.6-12.0); Monocytes # 1.1 10*3/uL (0.11-0.8); Monocytes % 7.6 % (1.7-12.7); Neutrophils # 10.7 10*3/uL (1.4-7.4); Platelet Count 102 T/CUMM (130-400); Red Blood Count 5.02 MC/CUMM (3.8-5.5); Red Cell Distribution Width 14.5 % (9.3-17.3); White Blood Count 13.7 T/CUMM (4-12)
[2018-03-10] MEDS ORDERED: POTASSIUM CHLORIDE 20 MEQ TABLET PO SCH (03:30)
[2018-03-10 03:57] LABS: Albumin 3.2 G/DL (3.4-5.0); Bilirubin,Total 0.7 MG/DL (0.2-1.0); Calcium 8.6 MG/DL (8.5-10.1); Risk Ratio 8.07; Thyroid Stimulating Hormone 0.725 uIU/ml (0.358-3.74); Total Protein 6.6 G/DL (6.4-8.3); VLDL CHOLESTEROL 45.2 MG/DL
[2018-03-10] MEDS ORDERED: niCARdipine 25 MG/10 ML VIAL IV ONE ×2 (05:31→07:59)
[2018-03-10] MEDS: CARVEDILOL 12.5 MG TABLET PO SCH (07:06)
[2018-03-10] MEDS: amLODIPine 10 MG TABLET PO SCH (08:04)
[2018-03-10] MEDS: ATORVASTATIN 40 MG TABLET PO SCH (08:05)
[2018-03-10] MEDS: PANTOPRAZOLE 40 MG TABLET PO SCH (08:05)
[2018-03-10] MEDS: NICOTINE 21 MG/24 HR PATCH TRANSDERM SCH (08:05)
[2018-03-10] MEDS: DOXAZOSIN 1 MG TABLET PO SCH ×2 (08:05→20:27)
[2018-03-10] MEDS ORDERED: LISINOPRIL 10 MG TABLET PO SCH (09:00)
[2018-03-10] MEDS: SPIRONOLACTONE 50 MG TABLET PO SCH ×2 (09:34→20:27)
[2018-03-10] MEDS: ALUMINUM/MAGNES/SIMETH MAX STR 30 ML UDCUP PO PRN ×3 (09:35→20:32)
[2018-03-10 10:39] LABS: Hepatitis A Ab IgM Quant 0.08 Index; Hepatitis A Ab IgM Result Negative (Negative); Hepatitis B Core IgM Quant 0.09 Index; Hepatitis B Core IgM Result Negative (Negative); Hepatitis B Surface Ag Quant < 0.10 Index; Hepatitis B Surface Ag Result Negative (Negative); Hepatitis C Virus Ab Quant 0.08 Index; Hepatitis C Virus Ab Result Negative (Negative)
[2018-03-10] MEDS: CARVEDILOL 25 MG TABLET PO SCH ×2 (12:17→17:13)
[2018-03-10] MEDS: NIFEdipine 10 MG CAPSULE PO PRN ×2 (13:03→20:27)
[2018-03-11] MEDS: NIFEdipine 10 MG CAPSULE PO PRN ×3 (00:52→12:51)
[2018-03-11 06:51] LABS: Albumin 2.8 G/DL (3.4-5.0); Bilirubin,Total 0.6 MG/DL (0.2-1.0); Calcium 8.5 MG/DL (8.5-10.1); Potassium 3.6 MMOL/L (3.5-5.1); Total Protein 6.1 G/DL (6.4-8.3)
[2018-03-11 08:20] LABS: Basophils # 0.1 10*3/uL (0.0-0.2); Basophils % 0.6 % (0.0-0.8); Eosinophils # 0.2 10*3/uL (0.0-0.87); Eosinophils % 1.5 % (0.00-10.9); Hematocrit 36.8 VOL% (42.0-52.0); Hemoglobin 12.1 GM/DL (14.0-18.0); Immature Granulocytes % 0.4 %; Immature Granulocytes Absolute 0.05 #; Lymphocytes % 16.4 % (21.2-54.2); Mean Corpuscular HGB Conc 32.9 GM/DL (32-36); Mean Corpuscular Hemoglobin 28 PG (27-34); Mean Corpuscular Volume 84.8 FL (87-102); Mean Platelet Volume 13.1 FL (9.6-12.0); Monocytes % 8.5 % (1.7-12.7); Neutrophils # 8.9 10*3/uL (1.4-7.4); Neutrophils % 72.6 % (38.7-73.9); Platelet Count 111 T/CUMM (130-400); Red Blood Count 4.34 MC/CUMM (3.8-5.5); Red Cell Distribution Width 14.9 % (9.3-17.3); White Blood Count 12.2 T/CUMM (4-12)
[2018-03-11] MEDS: NICOTINE 21 MG/24 HR PATCH TRANSDERM SCH (09:15)
[2018-03-11] MEDS: ATORVASTATIN 40 MG TABLET PO SCH (09:16)
[2018-03-11] MEDS: PANTOPRAZOLE 40 MG TABLET PO SCH (09:16)
[2018-03-11] MEDS: CARVEDILOL 25 MG TABLET PO SCH (09:16)
[2018-03-11] MEDS: DOXAZOSIN 1 MG TABLET PO SCH (09:16)
[2018-03-11] MEDS: amLODIPine 10 MG TABLET PO SCH (09:16)
[2018-03-11] MEDS: SPIRONOLACTONE 50 MG TABLET PO SCH (09:17)
[2018-03-11 14:02] VITALS: BP 166/112
== END 2018-03-11 14:05 | disposition home or self-care (01) | DRG 305 ==
LOC: N.CC 16:22 → SUATTDRO 16:22 → N.2E 03-10 14:07
PROVIDERS: ADMIT Internal Medicine; ATTEND Internal Medicine